=== PATIENT | male | born 1970 | race Caucasian/White ===

== ENCOUNTER 2021-01-13 10:35 | Outpatient (REF) | payer OTHER, SELFPAY ==
[2021-01-13 14:17] LABS: Hematocrit 41.9 % (42-52); Hemoglobin 13.5 g/dl (14.0-18.0); Mean Corpuscular HGB Conc 32.2 g/dl (31.0-36.0); Mean Corpuscular Hemoglobin 28.7 pg (27.0-33.0); Mean Platelet Volume 10.5 fL (9.4-12.4); Platelet Count 280 X10*3/uL (160-400); Red Blood Count 4.71 X10*6/uL (4.60-5.80); Red Cell Distribution Width 13.4 % (11.0-16.0); White Blood Count 8.2 X10*3/uL (4.8-10.8)
[2021-01-13 14:18] LABS: Glucose Urine UA NEG (NEG); Leukocyte Esterase Urine NEG (NEG); Nitrite Urine NEG (NEG); PH 7.5 (5.0-8.0); Urine Blood NEG (NEG); Urine Ketones 5 MG/DL (NEG); Urine Protein NEG (NEG-TRACE)
[2021-01-13 14:21] LABS: Appearance Urine CLEAR; Color Urine YELLOW
[2021-01-13 18:22] LABS: Alanine Aminotransferase 27 U/L (0-40); Albumin Level 4.5 g/dL (3.5-5.0); Alkaline Phosphatase 75 U/L (39-117); Aspartate Amino Transferase 26 U/L (5-37); Bilirubin Direct 0.2 mg/dL (0.0-0.5); Bilirubin Total 0.5 mg/dL (0.0-1.0); Cholesterol 202 mg/dL; HDL Cholesterol 53 mg/dL; LDL Cholesterol Calculated 103 mg/dl; Triglycerides 230 mg/dL
[2021-01-14 04:15] LABS: Folate 18.8 ng/mL (> or = 4.0); Vitamin B12 349 pg/mL (200-900)
[2021-01-18 12:51] LABS: Vitamin D 25-OH, D2 <4 ng/mL; Vitamin D 25-OH, D3 30 ng/mL; Vitamin D 25-OH, Total 30 ng/mL (30-100)
== END 2021-01-13 10:36 | disposition home or self-care (01) ==
LOC: HO.10HDL 10:35
PROVIDERS: Visit Provider Internal Medicine
DX: I10 Essential (primary) hypertension (principal)
CPT/HCPCS: 36415; 80061; 80076; 81003; 82306; 82607; 82746; 85027

== ENCOUNTER 2022-08-22 12:04 | Day surgery (SDC) | payer OTHER, SELFPAY ==
--- NOTE | 2022-08-19 08:06 | P.CONAN_ITS ---
Documented by User: Vera Hardy NP 08/19/22 08:06 HPI - Anesthesia Eval Consult details Narrative: 52yo M for Upper Endoscopy PMFSH Active Problems Active Problems: All Active Problems (Updated 08/18/22 @ 07:15 by Rita Maurer RN) Exposure to COVID-19 virus (Acute) HTN (hypertension) (Acute) Sciatic leg pain (Acute) Lumbar radiculopathy (Acute) Right hip pain (Acute) Pyuria (Acute) GERD with esophagitis (Acute) Adderall use disorder, mild (Acute) ANUJ (generalized anxiety disorder) (Acute) MDD (major depressive disorder), recurrent episode, moderate (Acute) Annual physical exam (Acute) Polyarthralgia (Acute) Past Medical History Medical History Anxiety Shin esophagus Depression GERD (gastroesophageal reflux disease) Hiatal hernia HTN (hypertension) Family History Family History Father Hypertension Substance use disorder Mother Hypertension Osteoarthritis Rheumatoid arthritis Surgical History Surgical History History of hernia repair History of shoulder surgery Hx of colonoscopy Hx of esophagogastroduodenoscopy Hx of rotator cuff surgery Status post excision of lipoma Social History Social History Housing: House Alcohol intake: current Alcohol intake frequency: a few times a week Alcohol type: beer Patient Tobacco Use Status: Former Tobacco user Tobacco use type: Cigarette e-Cigarette/Vaping Use: Never Used Second Hand Smoke Exposure: No Use of substances other than those prescribed or required for medical reasons: No Are you DNR?: No Advance Directives: No Advance Directives Information Provided: Yes service: No Current occupational status: employed 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 Cognitive needs: No Hearing needs: No Vision needs: Yes Meds Allergies Allergy/AdvReac Type Severity Reaction Status Date / Time No Known Allergies Allergy Verified 03/16/22 08:44 [No Known Allergies*] Home Medications Medication Instructions Recorded Confirmed Last Taken Type zolpidem 10 mg tablet 10 mg PO BEDTIME 01/13/21 03/16/22 Unknown History dextroamphetamine-amphetamine 10 1 tab PO TID 03/16/22 03/16/22 Unknown History mg tablet sildenafil 50 mg tablet mg PO 03/16/22 03/16/22 Unknown History Exam Exam Date and Time: August 19, 2022805 Assessment and Plan Assessment Anesthesia Assessment: Chart Reviewed Documented by User: Prudence Zabala MD 08/22/22 13:14 PENDING SALE TO [facility] Past Medical History Medical History Anxiety Shin esophagus Depression GERD (gastroesophageal reflux disease) Hiatal hernia HTN (hypertension) Family History Family History Father Hypertension Substance use disorder Mother Hypertension Osteoarthritis Rheumatoid arthritis Family history of problems with anesthesia: No Surgical History Surgical History History of hernia repair History of shoulder surgery Hx of colonoscopy Hx of esophagogastroduodenoscopy Hx of rotator cuff surgery Status post excision of lipoma History of Problems with Anesthesia: No Social History Social History Housing: House Alcohol intake: current Alcohol intake frequency: a few times a week Alcohol type: beer Patient Tobacco Use Status: Former Tobacco user Tobacco use type: Cigarette e-Cigarette/Vaping Use: Never Used Second Hand Smoke Exposure: No Use of substances other than those prescribed or required for medical reasons: No Are you DNR?: No Advance Directives: No Advance Directives Information Provided: Yes service: No Current occupational status: employed 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 Cognitive needs: No Hearing needs: No Vision needs: Yes Meds Allergies Allergy/AdvReac Type Severity Reaction Status Date / Time No Known Allergies Allergy Verified 03/16/22 08:44 [No Known Allergies*] Home Medications Medication Instructions Recorded Confirmed Last Taken Type zolpidem 10 mg tablet 10 mg PO BEDTIME 01/13/21 03/16/22 Unknown History dextroamphetamine-amphetamine 10 1 tab PO TID 03/16/22 03/16/22 Unknown History mg tablet sildenafil 50 mg tablet mg PO 03/16/22 03/16/22 Unknown History Exam Height,Weight and Vital Signs: Height 5 ft 10 in Weight 83.915 kg Vital Signs Temp Pulse Resp BP Pulse Ox O2 Del Method 08/22/22 12:33 97.4 F 70 16 132/86 99 Room Air Airway Mallampati Class: III TM Dist: >3cm Neck ROM: Full Loose/Missing/Broken Teeth: Yes (Missing molar) and No (Denies broken or loose teeth) Heart: RRR Lungs: CTAB Assessment and Plan Final Anesthetic Review Family History of Problems with Anesthesia: No History of Problems with Anesthesia: No NPO: Yes ASA Class: II Final Preanesthetic Review: No Changes in Pt Med Stat, Consent Obtained/Reviewed and Anes Risks/Benef Reviewed Patient Risk: Low Procedure Risk: Low Assessment/Block/Sedation in SS: Assess/Block/Sedation-SS Anesthetic Plan Anesthetic Plan: MAC: Disposition: Standard PACU
[2022-08-22 12:33] VITALS: BP 132/86; PULSE 70; RESP 16; TEMP 36.3; O2SAT 99; BMI 26.5
[2022-08-22] MEDS: Lactated Ringers 1,000 ML 100 ML IVCONT (12:45)
[2022-08-22 13:41] VITALS: BP 114/71; PULSE 64; RESP 16; TEMP 36.6; O2SAT 98
--- NOTE | 2022-08-22 13:45 | P.BOP_ITS ---
Brief Operative Note Date of Service: 08/22/22 Pre-op diagnosis: GERD, Shin's Post-op diagnosis: other (Same, Hiatal hernia) Procedure: EGD with biopsies Surgeon: Mauro Bhandari Anesthesia: MAC Was an Head Greenskeeper used for this Procedure?: No Estimated blood loss (mL): 2.0 Pathology: other (A. EG Junction at 38cm) Condition: stable Disposition: PACU
[2022-08-22 13:56] VITALS: BP 122/85; PULSE 67; RESP 18; TEMP 36.2; O2SAT 97
--- NOTE | 2022-08-23 00:29 | OP_ITS ---
SURGEON: Mauro Bhandari MD INDICATIONS: The patient presents for evaluation of gastroesophageal reflux and Shin esophagus. Full consent has been obtained from him for this, including risks of bleeding and perforation. PREOPERATIVE DIAGNOSIS: POSTOPERATIVE DIAGNOSIS: PROCEDURE PERFORMED: Esophagogastroduodenoscopy with biopsies. ESTIMATED BLOOD LOSS: COMPLICATIONS: ANESTHESIA: Monitored anesthesia care. ASSISTANTS: SPECIMENS: PREOPERATIVE DIAGNOSES: Gastroesophageal reflux and Shin esophagus. POSTOPERATIVE DIAGNOSES: Gastroesophageal reflux and Shin esophagus, hiatal hernia. DESCRIPTION OF PROCEDURE: The patient was placed in the left lateral decubitus position. The Olympus video gastroscope was passed in the posterior oropharynx and upper esophagus under direct vision. The scope was passed slowly into the distal esophagus. The gastroesophageal junction appeared at 38 cm. There was some slight irregularity but no evidence of any esophagitis. The scope entered the stomach. There was a small hiatal hernia. The scope was advanced to the pylorus and the duodenum was cannulated in the descending portion. The duodenum including the bulb appeared normal without mass or ulceration. The scope was withdrawn back in the stomach. The gastric antrum and body appeared normal with good peristalsis. The scope was retroflexed visualizing the proximal stomach carefully which appeared normal, without any sign of mass or ulceration. The scope was straightened and withdrawn back to the esophagus. Multiple biopsies were obtained at the EG junction at 38 cm. Proximal to this, the esophageal mucosa appeared normal. The scope was withdrawn from the patient. He tolerated the procedure well and was returned to recovery area in stable condition. IMPRESSION: 1. Hiatal hernia. 2. Gastroesophageal reflux. 3. History of Shin esophagus. PLAN: The results of biopsies will be checked. He was advised to continue his omeprazole. Assuming there is no dysplasia, I would recommend a repeat upper endoscopy in 3 years. He will be due for a followup colonoscopy in 2023 as well. MD ANNA Roa/HOMER / [id number]
== END 2022-08-22 14:03 | disposition home or self-care (01) ==
PROVIDERS: PCP Physician Assistant; Visit Provider Internal Medicine
PROC: 0DJ08ZZ Inspection of Upper Intestinal Tract, Via Natural or Artificial Opening Endoscopic (ICD-10-PCS; CPT 43235; principal; 2022-08-22 13:20)
DX: K21.9 Gastro-esophageal reflux disease without esophagitis (principal); K22.70 Barrett's esophagus without dysplasia; K44.9 Diaphragmatic hernia without obstruction or gangrene; I10 Essential (primary) hypertension; F41.8 Other specified anxiety disorders; Z79.899 Other long term (current) drug therapy
CPT/HCPCS: 43239; 88305

== ENCOUNTER 2023-09-28 08:32 | Outpatient (AMB) | payer OTHER, SELFPAY ==
[2023-09-28 08:43] VITALS: BP 120/78; PULSE 75; O2SAT 100; BMI 28.0
--- NOTE | 2023-09-28 08:43 | MHC.PC.OV ---
Vital Signs 09/28/23 08:43 Height 5 ft 10 in Weight 195 lb BMI 28.0 BP 120/78 Blood Pressure Location Lt brachial Position Sitting Pulse 75 Pulse Source Pulse Oximeter Pulse Oximetry (%) 100 Oxygen Delivery Method Room Air Intake Visit Reasons: f/u HTN / HLD/ IGM Feather Stitcher Required: No Merchandise Executive: Not Required per policy Accompanied by: Self / Same As Patient Allergies No Known Allergies [No Known Allergies*] Allergy (Verified 09/28/23 08:51) Medication List - Last Reconciled 09/28/23 by Jerry Ramirez PA-C amlodipine 10 mg PO DAILY 90 days metoprolol tartrate 25 mg PO BID omeprazole 20 mg PO BID sildenafil 100 mg PO DAILY PRN 7 days simvastatin 20 mg PO BEDTIME zolpidem 10 mg PO BEDTIME 28 days Tobacco use date assessed: 02/07/23 Dental Screening Dental Screen Date: 09/28/23 Did you have a dental visit in the last 12 months?: Yes Did you have a dental problem in the last 6 months where you did not have access to dental care?: No Was dental information given to patient?: Patient has dentist HPI f/u HTN / HLD/ IGM HPI Details Patient is a 53 year-old male here today for a follow-up visit..? Patient has a past medical history significant hypertension, insomnia, MDD, ADD,, GERD (Barretts esophagus),? hyperlipidemia, RA Has not gotten fasting labs done Osteoarthritis:? Recently underwent shoulder arthroscopic surgery , he use to have arthritic pain he does over the counter NSAIDs on a daily basis.? Does understand that this could be making his esophagitis gets worse.? He will try to implement more Tylenol Hypertension:? Reports blood pressures at home have been stable.? Blood pressure today in office acceptable.? Continues on metoprolol and amlodipine without any side effect.? .. Hyperlipidemia:? Patient's most recent lipid panel borderline high.? Continues on simvastatin without any side effect. .. GERD/ Shin's esophagus:? Is followed by gastroenterology and had EGD in 2021 showing esophagitis/Shin's esophagus.? Needed repeat it upper endoscopy in 5 years.? Unfortunately continues to take very fair amount of NSAIDs and does understand he needs to cut down . .. Depression/ ADHD: He does report he is off of all antidepressant medication. Was followed by psychiatrist whom was managing his mental health medication. He now for someone parent reason needs PCP to manage his ADHD medication. Has been taking Adderall 20 mg on a p.r.n. basis which has drastically improved his attention and focus. [facility] Medical History Erectile dysfunction Low libido HTN (hypertension) Anxiety Depression Hiatal hernia Shin esophagus GERD (gastroesophageal reflux disease) Pyuria Lumbar radiculopathy Surgical History History of surgery Hx of rotator cuff surgery Hx of colonoscopy Hx of esophagogastroduodenoscopy History of hernia repair Status post excision of lipoma History of shoulder surgery Family History Father Hypertension Substance use disorder Mother Hypertension Osteoarthritis Rheumatoid arthritis Social History Housing: House Alcohol intake: current Alcohol intake frequency: a few times a week Alcohol type: beer Patient Tobacco Use Status: Never used Tobacco e-Cigarette/Vaping Use: Never Used Second Hand Smoke Exposure: No service: No Current occupational status: employed 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 Mauro Gray, Judy Martinez, Elgin Mckenzie and colleagues, with an educational sid from [employer]. Review of Systems Const Denies headache(s) Eyes Denies loss of vision ENT Denies vertigo, Denies dizziness, Denies headache(s) and Denies sore throat Card Denies chest pain, Denies leg edema and Denies lightheadedness Resp Denies cough, Denies hemoptysis and Denies wheezing GI Denies abdominal pain, Denies melena, Denies constipation, Denies diarrhea and Denies vomiting Denies dysuria, Denies urinary frequency and Denies urinary urgency Musc Denies arthralgias, Denies joint swelling, Denies numbness and Denies tingling Neuro Denies Abnormal speech present, Denies behavioral changes, Denies vertigo, Denies dizziness, Denies headache(s), Denies loss of vision, Denies memory loss, Denies numbness and Denies tingling Psych Denies anxiety, Denies behavioral changes, Denies depression, Denies memory loss and Denies panic attacks Ian/Lymph Denies easy bleeding and Denies easy bruising Aller/Immun Denies wheezing Physical exam (Primary Care) Vital Signs: Last Vital Signs Pulse 75 09/28/23 08:43 BP 120/78 09/28/23 08:43 Pulse Ox 100 09/28/23 08:43 Oxygen Delivery Method Room Air 09/28/23 08:43 BMI result Body Mass Index 28.0 Tobacco/Smoking Status: Tobacco use Status Tobacco use date assessed 02/07/23 09/28/23 08:49 Patient Tobacco Use Status Never used Tobacco 09/28/23 08:49 Tobacco use type 03/29/23 09:12 e-Cigarette/Vaping Use Never Used 09/28/23 08:49 Thrive Assessment: Date of Thrive Assessment Date Thrive assessed 02/07/23 09/28/23 08:49 Const General: healthy appearing, no acute distress, alert and awake Nutritional Appearance: well nourished Orientation/consciousness: oriented to person, oriented to place and oriented to time HENMT Ears: TM's normal bilaterally General nose exam: Normal nasal mucous membranes and turbinates present Eyes Conjunctivae: conjunctivae normal Sclerae: sclerae normal Pupils: Equal, round and reactive pupils present Neck Neck: Yes no lymphadenopathy and Yes no JVD Thyroid: Thyroid normal Carotids: no bruits Resp Effort & Inspection: normal respiratory effort and not tachypneic Auscultation: no crackles, no rales, no rhonchi and no wheezes Cardio Rate: regular rate Rhythm: regular rhythm Heart sounds: no murmurs and normal S1 and S2 GI Palpation (GI): Soft to palpation, nontender, no hepatomegaly and no splenomegaly Auscultation: normal bowel sounds Skin General skin exam: no rashes or lesions noted and dry skin Neuro General: oriented to person, oriented to place and oriented to time Cranial nerves: Yes Equal, round and reactive pupils present Speech: No Abnormal speech present Gait exam (Neuro): Normal gait present Motor exam (neuro): no tremor noted Extrem Right upper extremity: full ROM Left upper extremity: full ROM Right lower extremity: full ROM; no edema Left lower extremity: full ROM; no edema Psych Mental Status: mental status grossly normal Speech and movement: Normal speech and movement present Affect: normal affect Attitude: cooperative Thought process: Normal thought process present Assessment and Plan Assessment & Plan (1) HTN (hypertension): Code(s): I10 - Essential (primary) hypertension Qualifiers: Hypertension type: primary hypertension Qualified Code(s): I10 - Essential (primary) hypertension Plan: Placement blood pressure acceptable today in office. Will continue his current dose of amlodipine and metoprolol with goal blood pressure be below 140/90 (2) HLD (hyperlipidemia): Code(s): E78.5 - Hyperlipidemia, unspecified Qualifiers: Hyperlipidemia type: mixed hyperlipidemia Qualified Code(s): E78.2 - Mixed hyperlipidemia Plan: Most recent labs showing appropriate total cholesterol and LDL. Will continue his current dose of simvastatin 20 mg with goal LDL to remain below 130 (3) Elevated fasting blood sugar: Code(s): R73.01 - Impaired fasting glucose Plan: Most recent fasting blood sugar at 110, will check an A1c at next office visit. He will work on lifestyle modifications on reducing his weight and carbohydrates in his diet. (4) ANUJ (generalized anxiety disorder): Code(s): F41.1 - Generalized anxiety disorder Plan: Patient's anxiety has been fairly well controlled without medication at this time. 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 He does use open him at night for sleep with good effect. (5) Polyarthralgia: Code(s): M25.50 - Pain in unspecified joint Plan: Continues to follow fish cutter for his polyarthralgia. Continues to manage his arthritic pains without NSAIDs at this time due to His chronic GERD and Shin's esophagus. (6) MDD (major depressive disorder), recurrent episode, moderate: Code(s): F33.1 - Major depressive disorder, recurrent, moderate Plan: Patient's patient is been fairly well maintained without medication. Using nonpharmacological techniques to control his mood. (7) GERD with esophagitis: Code(s): K21.00 - Gastro-esophageal reflux disease with esophagitis, without bleeding Qualifiers: Esophagitis bleeding: without hemorrhage Qualified Code(s): K21.00 - Gastro-esophageal reflux disease with esophagitis, without bleeding Plan: Patient's GERD symptoms will maintain with omeprazole b.i.d. dosing. Most recent endoscopy showing hiatal hernia and esophagitis. Continues to follow gastroenterology. Advised to avoid NSAIDs and GI irritant medications. Of note does drink alcohol several times a week. (8) ADHD (attention deficit hyperactivity disorder): Code(s): F90.9 - Attention-deficit hyperactivity disorder, unspecified type Qualifiers: Attention deficit-hyperactivity disorder type: predominantly inattentive Qualified Code(s): F90.0 - Attention-deficit hyperactivity disorder, predominantly inattentive type Plan: Has follow-up with Psychiatry. He has been asked to follow-up with his PCP on prescribing him Adderall for his ADHD. Has been stable on 20 mg p.r.n. for attention and focus. He will try to get a letter from his psychiatrist just to find the need for the medication. Medications: New dextroamphetamine-amphetamine 10 mg (Adderall) Partial Fill upon patient request. 20 mg (2 x 10 mg) PO DAILY 28 days 56 tabs 0RF F90.0 - Attention-deficit hyperactivity disorder, predominantly inattentive type Coding Level of Care Code Est Pt Level 4 (18690) Diagnoses Primary hypertension I10 Hypertension type: primary hypertension Mixed hyperlipidemia E78.2 Hyperlipidemia type: mixed hyperlipidemia Elevated fasting blood sugar R73.01 ANUJ (generalized anxiety disorder) F41.1 Polyarthralgia M25.50 MDD (major depressive disorder), recurrent episode, moderate F33.1 Gastroesophageal reflux disease with esophagitis without hemorrhage K21.00 Esophagitis bleeding: without hemorrhage Attention deficit hyperactivity disorder (ADHD), predominantly inattentive type F90.0 Attention deficit-hyperactivity disorder type: predominantly inattentive
== END 2023-09-28 09:14 | disposition home or self-care (01) ==
PROVIDERS: PCP Physician Assistant; Visit Provider Physician Assistant
DX: I10 Essential (primary) hypertension (principal); F33.1 Major depressive disorder, recurrent, moderate; E78.2 Mixed hyperlipidemia; R73.01 Impaired fasting glucose; F41.1 Generalized anxiety disorder; M25.50 Pain in unspecified joint; K21.00 Gastro-esophageal reflux disease with esophagitis, without bleeding; F90.0 Attention-deficit hyperactivity disorder, predominantly inattentive type
CPT/HCPCS: 99214

== ENCOUNTER 2024-04-01 07:37 | Outpatient (AMB) | payer OTHER, SELFPAY ==
[2024-04-01 07:47] VITALS: BP 114/76; BMI 27.3
--- NOTE | 2024-04-01 07:47 | MHC.PC.OV ---
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 Required: No Accompanied by: Self / Same As Patient Allergies No Known Allergies [No Known Allergies*] Allergy (Verified 04/01/24 07:59) Medication List - Last Reconciled 04/01/24 by Jerry Ramirez PA-C amlodipine 10 mg PO DAILY 90 days dextroamphetamine-amphetamine 10 mg (Adderall) 20 mg (2 x 10 mg) PO DAILY 28 days metoprolol tartrate 25 mg PO BID omeprazole 20 mg PO BID sildenafil 100 mg PO DAILY PRN 7 days simvastatin 20 mg PO BEDTIME zolpidem 10 mg PO BEDTIME 28 days Tobacco use date assessed: 04/01/24 Dental Screening Dental Screen Date: 04/01/24 Did you have a dental visit in the last 12 months?: Yes Did you have a dental problem in the last 6 months where you did not have access to dental care?: No Was dental information given to patient?: Patient has dentist HPI Annual Exam HPI Details Patient is a 54 year-old male here today for a routine annual physical.? Patient has a past medical history significant hypertension, insomnia, MDD, ADD,, GERD (Barretts esophagus),? hyperlipidemia, Osteoarthritis:? Continues to suffer with polyarthralgia complaints. Followed by the arthritic treatment center. He uses NSAIDs on a daily basis.? Does understand that this could be making his esophagitis gets worse.? He will try to implement more Tylenol/. He has not been formally diagnosed with autoimmune arthritis. Hypertension:? Reports blood pressures at home have been stable.? Blood pressure today in office acceptable.? Continues on metoprolol and amlodipine without any side effect.? .. Hyperlipidemia:? Patient's most recent lipid panel borderline high.? Continues on simvastatin without any side effect. .. GERD/ Shin's esophagus:? Is followed by gastroenterology and had EGD in 2021 showing esophagitis/Shin's esophagus.? Needed repeat it upper endoscopy in 5 years.? Unfortunately continues to take very fair amount of NSAIDs and does understand he needs to cut down . .. Depression/ ADHD: He does report he is off of all antidepressant medication. Was followed by psychiatrist whom was managing his mental health medication. . Has been taking Adderall 20 mg on a p.r.n. basis which has drastically improved his attention and focus. Colon cancer screening- needs repeat colonoscopy in 2023- Dr. Bhandari?? Vaccines: Up-to-date with COVID vaccine and needs tetanus vaccine, considering shingrex vaccine. [facility] Medical History Erectile dysfunction Low libido HTN (hypertension) Anxiety Depression Hiatal hernia Shin esophagus GERD (gastroesophageal reflux disease) Pyuria Lumbar radiculopathy Surgical History History of surgery Hx of rotator cuff surgery Hx of colonoscopy Hx of esophagogastroduodenoscopy History of hernia repair Status post excision of lipoma History of shoulder surgery Family History Father Hypertension Substance use disorder Mother Hypertension Osteoarthritis Rheumatoid arthritis Social History Housing: House Alcohol intake: current Alcohol intake frequency: a few times a week Alcohol type: beer Patient Tobacco Use Status: Never used Tobacco e-Cigarette/Vaping Use: Never Used Second Hand Smoke Exposure: No service: No Current occupational status: employed 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 1. Little interest or pleasure in doing things: not at all 2. Feeling down, depressed, or hopeless: not at all 3. Trouble falling or staying asleep, or sleeping too much: not at all 4. Feeling tired or having little energy: not at all 5. Poor appetite or overeating: not at all 6. Feeling bad about yourself - or that you are a failure or have let yourself or your family down: not at all 7. Trouble concentrating on things, such as reading the newspaper or watching television: not at all 8. Moving or speaking so slowly that other people could have noticed. Or the opposite - being so fidgety or restless that you have been moving around a lot more than usual: not at all 9. Thoughts that you would be better off or of hurting yourself in some way: not at all Total score: 0 Depression Screening Interpretation: Negative Depression Screening Done: Yes 36517 - PHQ-9 Billing: Yes Source: Developed by Drs. Mauro Gray, Judy Martinez, Elgin Mkcenzie and colleagues, with an educational sid from [employer]. Thrive Questionnaire Date Thrive assessed: 02/07/23 AUDIT C Alcohol Use Questionnaire (AUDIT-C) 1. How often do you have a drink containing alcohol?: 2-3 times a week 2. How many drinks containing alcohol do you have on a typical day when you are drinking?: 1 or 2 3. How often do you have six or more drinks on one occasion?: Never Total Score: 3 ANUJ-7 AMB Questionnaire ANUJ-7 Date ANUJ - 7 assessed: 04/01/24 Feeling nervous, anxious, or on edge: 1 = Several days Not being able to stop or control worryin = Not at all Worrying too much about different things: 1 = Several days Trouble relaxin = Several days Being so restless that it is hard to sit still: 0 = Not at all Becoming easily annoyed or irritable: 1 = Several days Feeling afraid as if something awful might happen: 0 = Not at all Total ANUJ-7 score (0-4 normal; 5-9 mild; 10-14 moderate; 15-21 severe): 4 Source: Developed by Drs. Mauro Gray, Judy Martinez, Elgin Mckenzie and colleagues, with an educational sid from [employer]. ANUJ-7 Assessment Billing ANUJ-7 Assessment Tool: ANUJ-7 Assessment 73702 Review of Systems Const Reports body aches, Denies chills, Denies excessive sweating, Denies fatigue, Denies fever(s) and Denies headache(s) Eyes Denies blurry vision ENT Denies dysphagia, Denies vertigo, Denies dizziness, Denies headache(s), Denies hearing loss and Denies tinnitus Card Denies chest pain, Denies chest pain with activity, Denies syncope, Denies irregular heart rhythm and Denies dyspnea Resp Denies chest congestion, Denies cough, Denies hemoptysis, Denies dyspnea and Denies wheezing GI Denies abdominal pain, Denies melena, Denies hematochezia, Denies coffee ground emesis, Denies dysphagia, Denies diarrhea, Denies nausea and Denies vomiting Denies difficulty urinating, Denies dysuria, Denies urinary frequency, Denies urinary hesitancy and Denies urinary urgency Musc Reports arthralgias, Denies limited range of motion, Denies muscle cramps and Denies muscle weakness Skin/Breast Denies rash and Denies skin ulcer Neuro Denies Abnormal speech present, Denies confusion, Denies vertigo, Denies dizziness, Denies syncope, Denies headache(s), Denies memory loss and Denies seizure-like activity Psych Denies anxiety, Denies confusion, Denies depression, Denies memory loss, Denies panic attacks and Denies paranoia Endo Denies excessive sweating, Denies fatigue, Denies flushing, Denies polydipsia and Denies polyuria Aller/Immun Denies wheezing Physical exam (Primary Care) Vital Signs: Last Vital Signs BP 114/76 04/01/24 07:47 BMI result Body Mass Index 27.3 Tobacco/Smoking Status: Tobacco use Status Tobacco use date assessed 04/01/24 04/01/24 07:53 Patient Tobacco Use Status Never used Tobacco 04/01/24 07:53 Tobacco use type 03/29/23 09:12 e-Cigarette/Vaping Use Never Used 04/01/24 07:53 PHQ-9: PHQ-9 Score PHQ-9: Total score 0 04/01/24 08:31 Depression Screening Interpretation: Negative Thrive Assessment: Date of Thrive Assessment Date Thrive assessed 02/07/23 04/01/24 07:53 Const General: cooperative, comfortable, no acute distress, alert and awake; No confusion Orientation/consciousness: oriented to person, oriented to place, patient oriented x3 and No confusion HENMT Head: Yes normocephalic Ears: external ears normal and TM's normal bilaterally Face and sinus: No sinus tenderness Mouth: Normal oral and palatal mucosa present and tongue normal Teeth and gingiva: dentition normal and gingiva normal Throat: Yes posterior oropharynx normal, Yes tonsils normal and Yes uvula midline Eyes Conjunctivae: conjunctivae normal Sclerae: sclerae normal Pupils: Equal, round and reactive pupils present EOM: EOMs intact bilaterally Direct Ophthalmoscopy: No no photophobia Neck Neck: Yes no lymphadenopathy, No tender and Yes no JVD Thyroid: Thyroid normal Carotids: no bruits Chest Chest palpation & inspection: no tenderness Resp Effort & Inspection: normal respiratory effort, no audible wheezes, not labored and no stridor Auscultation: no crackles, no rales, no rhonchi and no wheezes Cardio Jugular venous distension: no JVD Rate: regular rate, not bradycardic and not tachycardic Rhythm: regular rhythm Bruits: no carotid bruits Peripheral pulses: Peripheral pulses 2+ throughout GI Inspection: Yes normal to inspection, No abdominal wall ecchymosis and No visible herniation Palpation (GI): Soft to palpation, nontender, no guarding, not rigid and No hepatosplenomegaly present Auscultation: normoactive bowel sounds General: Yes no CVA tenderness Back/Spine/Pelvis Back: no CVA tenderness and No back tenderness Cervical Spine: cervical ROM normal Thoracic/Lumbar Spine: thoracic and lumbar spine normal to inspection, straight leg raise negative bilaterally, No thoraco-lumbar ROM limited and No lumbar spinal tenderness Skin Lesions: no lesions Rashes: no rashes Wounds: no wounds Neuro General: oriented to person, oriented to place, patient oriented x3, CN's II-XI intact bilaterally and No confusion Cranial nerves: Yes Equal, round and reactive pupils present and Yes Normal accommodation reflex present Cognition (Neuro): normal cognition Speech: No Abnormal speech present Gait exam (Neuro): Normal gait present Motor exam (neuro): 5/5 motor strength present throughout Extrem Right upper extremity: full ROM; no cyanosis Left upper extremity: full ROM; no cyanosis Right lower extremity: no edema Left lower extremity: no edema Psych Appearance: grossly normal Mental Status: mental status grossly normal Affect: normal affect Attitude: cooperative Thought process: Normal thought process present Immunizations Boostrix Tdap 2.5 Lf unit-8 mcg-5 Lf/0.5 mL intramuscular syringe Performing Provider: Jerry Ramierz PA-C [facility] Administered by: ROSA Canseco on 04/01/24 08:31 Dose Route Admin Location Dispensed Lot Number Expiration Date NDC Jig Bore Operator 0.5 mL IM Left Deltoid 0.5 mL [id number] 05/17/26 [id number] Predikt VIS Given Date VIS Provided VIS Publication Date 04/01/24 Single Vaccine 21 Eligibility Eligibility Date Funding Source Not [facility] Eligible 04/01/24 Private Assessment and Plan Assessment & Plan (1) Annual physical exam: Code(s): Z00.00 - Encounter for general adult medical examination without abnormal findings (2) HTN (hypertension): Code(s): I10 - Essential (primary) hypertension Qualifiers: Hypertension type: primary hypertension Qualified Code(s): I10 - Essential (primary) hypertension Plan: Placement blood pressure acceptable today in office. Will continue his current dose of amlodipine and metoprolol with goal blood pressure be below 140/90 (3) HLD (hyperlipidemia): Code(s): E78.5 - Hyperlipidemia, unspecified Qualifiers: Hyperlipidemia type: mixed hyperlipidemia Qualified Code(s): E78.2 - Mixed hyperlipidemia Plan: Most recent labs showing appropriate total cholesterol and LDL. Will continue his current dose of simvastatin 20 mg with goal LDL to remain below 130 (4) Elevated fasting blood sugar: Code(s): R73.01 - Impaired fasting glucose Plan: Most recent fasting blood sugar at 110, will check an A1c at next office visit. He will work on lifestyle modifications on reducing his weight and carbohydrates in his diet. (5) ANUJ (generalized anxiety disorder): Code(s): F41.1 - Generalized anxiety disorder Plan: Patient's ANUJ-7 score positive for mild anxiety which has been existing condition for him.. Patient's anxiety has been fairly well controlled without medication at this time. 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 He does use open him at night for sleep with good effect. (6) Polyarthralgia: Code(s): M25.50 - Pain in unspecified joint Plan: Continues to follow stone product fabricator for his polyarthralgia. Continues to manage his arthritic pains without NSAIDs at this time due to His chronic GERD and Shin's esophagus. We did discuss possibly implementing fasting diet to help his arthritis. (7) MDD (major depressive disorder), recurrent episode, moderate: Code(s): F33.1 - Major depressive disorder, recurrent, moderate Plan: Patient's patient is been fairly well maintained without medication. Using nonpharmacological techniques to control his mood. (8) GERD with esophagitis: Code(s): K21.00 - Gastro-esophageal reflux disease with esophagitis, without bleeding Qualifiers: Esophagitis bleeding: without hemorrhage Qualified Code(s): K21.00 - Gastro-esophageal reflux disease with esophagitis, without bleeding Plan: Patient's GERD symptoms will maintain with omeprazole b.i.d. dosing. Most recent endoscopy showing hiatal hernia and esophagitis. Continues to follow gastroenterology. Advised to avoid NSAIDs and GI irritant medications. Of note does drink alcohol several times a week. (9) ADHD (attention deficit hyperactivity disorder): Code(s): F90.9 - Attention-deficit hyperactivity disorder, unspecified type Qualifiers: Attention deficit-hyperactivity disorder type: predominantly inattentive Qualified Code(s): F90.0 - Attention-deficit hyperactivity disorder, predominantly inattentive type Plan: Has follow-up with Psychiatry. He is reestablish care with a mental health med provider and continues on Adderall. Has been stable on 20 mg p.r.n. for attention and focus. Orders: Orders Hemoglobin A1c 04/01/24 R73.01 - Impaired fasting glucose TDaP Immunization 04/01/24 R73.01 - Impaired fasting glucose, Z23 - Encounter for immunization Lipid Panel 04/01/24 E78.2 - Mixed hyperlipidemia Comprehensive [place]. Panel Fast 04/01/24 I10 - Essential (primary) hypertension Complete Blood Count no Diff 04/01/24 I10 - Essential (primary) hypertension Patient Instructions: Goal: Blood pressure to remain below 140/90 Barriers: Adherence to physical activity and healthy eating habits Coding Level of Care Code Est Pt Prev Care 40-64y(19322) Diagnoses Annual physical exam Z00.00 Primary hypertension I10 Hypertension type: primary hypertension Mixed hyperlipidemia E78.2 Hyperlipidemia type: mixed hyperlipidemia Elevated fasting blood sugar R73.01 ANUJ (generalized anxiety disorder) F41.1 Polyarthralgia M25.50 MDD (major depressive disorder), recurrent episode, moderate F33.1 Gastroesophageal reflux disease with esophagitis without hemorrhage K21.00 Esophagitis bleeding: without hemorrhage Attention deficit hyperactivity disorder (ADHD), predominantly inattentive type F90.0 Attention deficit-hyperactivity disorder type: predominantly inattentive Additional Codes ANUJ-7 Assessment Billing - ANUJ-7 Assessment Tool: ANUJ-7 Assessment 27887 ([id number])
== END 2024-04-01 08:32 | disposition home or self-care (01) ==
PROVIDERS: PCP Physician Assistant; Visit Provider Physician Assistant
DX: Z23 Encounter for immunization (principal); R73.01 Impaired fasting glucose
CPT/HCPCS: 90471; 90715; 99396

== ENCOUNTER 2024-06-26 11:09 | Outpatient (AMB) | payer OTHER, SELFPAY ==
--- NOTE | 2024-06-26 11:23 | A.OFFVIS_ITS ---
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 Ramirez. He has a past medical history of ED, low libido, hypertension, anxiety, depression, hiatal hernia, Shin's esophagus, GERD, and lumbar radiculopathy. He presents to the office today as a new patient for right-sided scrotal, testicular and groin discomfort he has been experiencing. He reports initially symptoms presented 15 years ago and he underwent a scrotal ultrasound that noted epidid ymal head cysts and recommendations were made for surveillance monitoring. He reports he continues with intermittent episodes of pain and feels cysts have gotten bigger. He discusses with his PCP at which time urology referral was made for further assessment evaluation. In assessment of the patient today the penis is circumcised bilateral epididymal head cysts palpated without pain however during exam during palpation of groin area patient does report pain. Otherwise no open areas, lesions, and or drainage noted. Discussed obtaining scrotal ultrasound for further assessment evaluation. We discussed further intervention to include surgical versus surveillance monitoring. Risks and benefits of these interventions were discussed. Otherwise denies any bothersome urinary issues. He denies urinary urgency, urinary frequency, incontinence, nocturia, hematuria, dysuria, foul smelling urine, changes to urinary stream, flank pain, fever, and or chills. He is happy with his current voiding parameters. He does report a history of erectile dysfunction however feels Viagra is helpful. He otherwise offers no other issues or concerns at this time. [facility]LY [facility], [facility] Medical History Erectile dysfunction Low libido HTN (hypertension) Anxiety Depression Hiatal hernia Shin esophagus GERD (gastroesophageal reflux disease) Pyuria Lumbar radiculopathy Surgical History History of surgery Hx of rotator cuff surgery Hx of colonoscopy Hx of esophagogastroduodenoscopy History of hernia repair Status post excision of lipoma History of shoulder surgery Family History Father Hypertension Substance use disorder Mother Hypertension Osteoarthritis Rheumatoid arthritis Social History Housing: House Alcohol intake: current Alcohol intake frequency: a few times a week Alcohol type: beer Patient Tobacco Use Status: Never used Tobacco e-Cigarette/Vaping Use: Never Used Second Hand Smoke Exposure: No service: No Current occupational status: employed 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 occupational exposures/hazards: No Cognitive needs: No Hearing needs: No Vision needs: Yes Review of Systems Const All systems reviewed & are unremarkable except as noted in HPI and below Physical Exam Const General: cooperative, comfortable, no acute distress, well developed, alert and awake Orientation/consciousness: patient oriented x3 HEENT Head: Yes normal to inspection, Yes normocephalic and Yes atraumatic Ears: hearing grossly normal bilaterally Eyes General: appearance normal, both eyes and all related structures Neck Neck: Yes normal visual inspection and Yes trachea midline Chest Chest palpation & inspection: normal inspection of the chest Resp Effort & Inspection: normal respiratory effort and able to speak in complete sentences Cardio Rate: regular rate GI Inspection: Yes normal to inspection General: Yes no CVA tenderness Back/Spine/Pelvis Back: no CVA tenderness Skin General skin exam: no rashes or lesions noted Neuro General: patient oriented x3 Extrem General: Yes normal to inspection Psych Appearance: grossly normal and well kempt Mental Status: mental status grossly normal Speech and movement: Normal speech and movement present and Clear speech present Affect: normal affect Attitude: cooperative Thought process: Normal thought process present Thought content: Normal thought content present Insight: Fair insight present (Psych) Judgement: Fair judgement present (Psych) Results AMB Urinalysis, Automated UA Leukoctes 0 Olvin/uL Last Edit by Ting Lane on 06/26/24 11:34 UA Nitrite Last Edit by Ting Lane on 06/26/24 11:34 UA Urobilinogen 0.2 mg/dL Last Edit by Ting Lane on 06/26/24 11:34 UA Protein 0 mg/dL Last Edit by Ting Lane on 06/26/24 11:34 UA pH 7.0 Last Edit by Ting Lane on 06/26/24 11:34 UA Blood 0 Roderick/uL Last Edit by Ting Lane on 06/26/24 11:34 UA Specific [place] 1.015 Last Edit by Ting Lane on 06/26/24 11:34 UA Ketone Negative Last Edit by Ting Lane on 06/26/24 11:34 UA Bilirubin 0 mg/dL Last Edit by Ting Lane on 06/26/24 11:34 UA Glucose 0 mg/dL Last Edit by Turbulenzvalarie Lane on 06/26/24 11:34 Results Reviewed Results Reviewed: Laboratory Last Values Urine pH (Auto) 7.0 06/26/24 11:32 Specific [place] (Auto) 1.015 06/26/24 11:32 Urine Protein (Auto) 0 mg/dL 06/26/24 11:32 Glucose (UA)(Auto) 0 mg/dL 06/26/24 11:32 Urine Ketones (Auto) Negative 06/26/24 11:32 Urine Blood (Auto) 0 Roderick/uL 06/26/24 11:32 Urine Bilirubin (Auto) 0 mg/dL 06/26/24 11:32 Urine Urobilinogen (Auto) 0.2 mg/dL 06/26/24 11:32 Leukocyte Esterase (Auto) 0 Olvin/uL 06/26/24 11:32 Assessment & Plan Assessment & Plan (1) Testicular pain: Code(s): N50.819 - Testicular pain, unspecified Category: Medical (2) Testicular cyst: Code(s): N44.2 - Benign cyst of testis Category: Medical Plan In office urinalysis results reviewed with the patient today; as noted above. Will obtain scrotal ultrasound for further assessment evaluation. Discussed potential causes as well as further treatment options for epididymal head cysts. He currently denies any bothersome urinary issues or concerns. He reports be happy with current voiding parameters. Reassurance provided Follow-up in 1-3 months with imaging to be completed prior; or sooner with any issues, concerns, and or questions. Orders: Orders AMB Urinalysis Automated Today Z13.9 - Encounter for screening, unspecified US scrotum Today N43.3 - Hydrocele, unspecified Patient Instructions: The patient had an opportunity to ask questions regarding the treatment plan. All questions were answered. Physical exam, labs, and imaging were discussed and reviewed in detail. As well as risks, benefits, and discussion of treatment choices. No major barriers to understanding were identified. The patient expressed understanding and agreement with the above treatment plan. The patient was made aware they should contact our office by phone for worsening of their current condition, the appearance of new symptoms, or with any questions or concerns. Compliance is encouraged with any medications and follow up testing that is ordered. It is a privilege to be allowed the opportunity to participate in? your urological care.? Again, if you have any questions or concerns If you have any questions or concerns please do not hesitate to contact me. The office is [phone]. This note is constructed using voice recognition software. While every effort has been made to ensure accuracy peanut shaker errors may have been included. Yours sincerely, JUANIS Lloyd Coding Level of Care Code New Pt Level 3 (96994) Diagnoses Testicular pain N50.819 Testicular cyst N44.2
== END 2024-06-26 11:50 | disposition home or self-care (01) ==
PROVIDERS: PCP Physician Assistant; Visit Provider Nurse Practitioner Family
DX: N50.819 Testicular pain, unspecified (principal); N44.2 Benign cyst of testis; Z13.9 Encounter for screening, unspecified
CPT/HCPCS: 99203

== ENCOUNTER → 2024-06-26 11:09 | Outpatient (BNVA) | payer OTHER, SELFPAY | PROVIDERS: PCP Physician Assistant; Visit Provider Nurse Practitioner Family | DX: N50.811 Right testicular pain (principal); N44.2 Benign cyst of testis | CPT/HCPCS: 81003 ==

== ENCOUNTER 2024-07-30 12:58 | Outpatient (REF) | payer OTHER, SELFPAY ==
--- NOTE | ~2024-07-30 | US_ITS ---
EXAMINATION: US SCROTUM CLINICAL INFORMATION: Hydrocele, unspecified. COMPARISON: None available. TECHNIQUE: A sonogram of the scrotum was performed assessing juan-scale appearance and color Doppler flow. Spectral Doppler analysis of the arterial and venous flow were performed in the testes bilaterally. FINDINGS: RIGHT: Right testicle measures 5.6 x 2.6 x 3.5 cm, volume 26.2 mL. Parenchymal echotexture is homogeneous. There is tubular ectasia of the rete testes. 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 Spectral Doppler analysis of the arterial and venous flow is normal in the right testis. Right epididymal head is normal in size. Multiple epididymal cysts are present, the largest measures 1.9 x 1.5 x 1.8 cm. No right hydrocele or varicocele is seen. LEFT: Left testicle measures 5.8 x 2.5 x 4.1 cm, volume 30.6 mL. Parenchymal echotexture is homogeneous. 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 Spectral Doppler analysis of the arterial and venous flow is normal in the left testis. Left epididymal head is normal in size. Multiple epididymal cysts are present, the largest measures 1.0 x 0.9 x 1.0 cm. No left hydrocele or varicocele is seen. US/US scrotum IMPRESSION: 1. Bilateral epididymal cysts.. 2. Tubular ectasia of the rete testes on the right. 3. Testicular microlithiasis is present without intratesticular mass or other worrisome findings. In the absence of any other risk factors for testicular cancer (e.g., personal history of testicular cancer, a father or brother with testicular cancer, history of cryptorchidism or maldescent, testicular atrophy, or other risk factors), no further imaging or biochemical follow-up is necessary; all that is recommended is routine monthly testicular self-examination. However, if the patient has risk factors for testicular cancer, referral to a urologist for evaluation and determination of an optimal follow-up strategy is recommended. Electronically signed by: Bart Daugherty MD 08/27/2024 07:13 PM [facility]
== END 2024-07-30 12:59 | disposition home or self-care (01) ==
LOC: HO.US 12:58
PROVIDERS: PCP Physician Assistant; Visit Provider Nurse Practitioner Family
DX: N43.3 Hydrocele, unspecified (principal)
CPT/HCPCS: 76870

== ENCOUNTER 2024-08-15 08:27 | Outpatient (AMB) | payer OTHER, SELFPAY ==
--- NOTE | 2024-08-15 08:30 | A.OFFVIS_ITS ---
Intake Visit Reasons: 2m/US(set) Intake Note: Patient presents today for follow up on: testicular pain and ultrasound results Imaging completed: 07/30/24 Urology Medications: sildenafil Blood Thinner: none Cdl Bulk Driver Required: No Accompanied by: Self / Same As Patient Allergies No Known Allergies [No Known Allergies*] Allergy (Verified 08/15/24 08:31) HPI Comments Details: Joseph is a very pleasant 54-year-old male patient of Dr. Ramirez. He has a past medical history of ED, low libido, hypertension, anxiety, depression, hiatal hernia, Shin's esophagus, GERD, and lumbar radiculopathy. He presents to the office today for follow-up. Of note, patient was seen approximately 2 months ago as a new patient for right-sided scrotal, testicular and groin discomfort he has been experiencing at which time on exam patient was noted to have bilateral epididymal head cysts a scrotal ultrasound was ordered and performed and these results were reviewed with the patient today. Bilateral epididymal head cyst. Tubular ectasia of the rete testes on the right. Testicular microlithiasis is present without intratesticular mass or other worrisome findings. We discussed further treatment options to include surgical intervention verses surveillance monitoring. We discussed risks and benefits of these interventions. He otherwise denies any bothersome urinary issues or concerns. He denies urinary urgency, urinary frequency, incontinence, nocturia, hematuria, dysuria, foul smelling urine, changes to urinary stream, flank pain, fever, and or chills. He is happy with his current voiding parameters. In office urinalysis results reviewed with the patient today. He does report a history of erectile dysfunction however feels Viagra is helpful. He otherwise offers no other issues or concerns at this time. [facility] Medical History Erectile dysfunction Low libido HTN (hypertension) Anxiety Depression Hiatal hernia Shin esophagus GERD (gastroesophageal reflux disease) Pyuria Lumbar radiculopathy Surgical History History of surgery Hx of rotator cuff surgery Hx of colonoscopy Hx of esophagogastroduodenoscopy History of hernia repair Status post excision of lipoma History of shoulder surgery Family History Father Hypertension Substance use disorder Mother Hypertension Osteoarthritis Rheumatoid arthritis Social History Housing: House Alcohol intake: current Alcohol intake frequency: a few times a week Alcohol type: beer Patient Tobacco Use Status: Never used Tobacco e-Cigarette/Vaping Use: Never Used Second Hand Smoke Exposure: No service: No Current occupational status: employed 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 occupational exposures/hazards: No Cognitive needs: No Hearing needs: No Vision needs: Yes Review of Systems Const All systems reviewed & are unremarkable except as noted in HPI and below Physical Exam Const General: cooperative, comfortable, no acute distress, well developed, alert and awake Orientation/consciousness: patient oriented x3 Limitations: no limitations HEENT Head: Yes normal to inspection, Yes normocephalic and Yes atraumatic Ears: hearing grossly normal bilaterally Eyes General: appearance normal, both eyes and all related structures Neck Neck: Yes normal visual inspection and Yes trachea midline Chest Chest palpation & inspection: normal inspection of the chest Resp Effort & Inspection: normal respiratory effort and able to speak in complete sentences Cardio Rate: regular rate GI Inspection: Yes normal to inspection General: Yes no CVA tenderness Back/Spine/Pelvis Back: no CVA tenderness Skin General skin exam: no rashes or lesions noted Neuro General: patient oriented x3 Extrem General: Yes normal to inspection Psych Appearance: grossly normal and well kempt Mental Status: mental status grossly normal Speech and movement: Normal speech and movement present and Clear speech present Affect: normal affect Attitude: cooperative Thought process: Normal thought process present Thought content: Normal thought content present Insight: Fair insight present (Psych) Judgement: Fair judgement present (Psych) Results AMB Urinalysis, Automated UA Leukoctes 0 Olvin/uL Last Edit by Ting Lane on 08/15/24 08:45 UA Nitrite Last Edit by Ting Lane on 08/15/24 08:45 UA Urobilinogen 0.2 mg/dL Last Edit by Ting Aspenstar on 08/15/24 08:45 UA Protein 0 mg/dL Last Edit by Ting Lane on 08/15/24 08:45 UA pH 6.5 Last Edit by Ting Lane on 08/15/24 08:45 UA Blood 0 Roderick/uL Last Edit by Ting Lane on 08/15/24 08:45 UA Specific Kimball 1.015 Last Edit by Ting Lane on 08/15/24 08:45 UA Ketone Last Edit by Ting Lane on 08/15/24 08:45 UA Bilirubin 0 mg/dL Last Edit by Ting Lane on 08/15/24 08:45 UA Glucose 0 mg/dL Last Edit by Ting Lane on 08/15/24 08:45 Results Reviewed Results Reviewed: Laboratory Last Values Urine pH (Auto) 6.5 08/15/24 08:32 Specific Kimball (Auto) 1.015 08/15/24 08:32 Urine Protein (Auto) 0 mg/dL 08/15/24 08:32 Glucose (UA)(Auto) 0 mg/dL 08/15/24 08:32 Urine Blood (Auto) 0 Roderick/uL 08/15/24 08:32 Urine Bilirubin (Auto) 0 mg/dL 08/15/24 08:32 Urine Urobilinogen (Auto) 0.2 mg/dL 08/15/24 08:32 Leukocyte Esterase (Auto) 0 Olvin/uL 08/15/24 08:32 Date of Service: 07/30/24 EXAMINATION: US SCROTUM FINDINGS: RIGHT: Right testicle measures 5.6 x 2.6 x 3.5 cm, volume 26.2 mL. Parenchymal echotexture is homogeneous. There is tubular ectasia of the rete testes. 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 Spectral Doppler analysis of the arterial and venous flow is normal in the right testis. Right epididymal head is normal in size. Multiple epididymal cysts are present, the largest measures 1.9 x 1.5 x 1.8 cm. No right hydrocele or varicocele is seen. LEFT: Left testicle measures 5.8 x 2.5 x 4.1 cm, volume 30.6 mL. Parenchymal echotexture is homogeneous. 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 Spectral Doppler analysis of the arterial and venous flow is normal in the left testis. Left epididymal head is normal in size. Multiple epididymal cysts are present, the largest measures 1.0 x 0.9 x 1.0 cm. No left hydrocele or varicocele is seen. IMPRESSION: 1. Bilateral epididymal cysts.. 2. Tubular ectasia of the rete testes on the right. 3. Testicular microlithiasis is present without intratesticular mass or other worrisome findings. In the absence of any other risk factors for testicular cancer (e.g., personal history of testicular cancer, a father or brother with testicular cancer, history of cryptorchidism or maldescent, testicular atrophy, or other risk factors), no further imaging or biochemical follow-up is necessary; all that is recommended is routine monthly testicular self-examination. However, if the patient has risk factors for testicular cancer, referral to a urologist for evaluation and determination of an optimal follow-up strategy is recommended. Assessment & Plan Assessment & Plan (1) Testicular pain: Code(s): N50.819 - Testicular pain, unspecified Category: Medical (2) Testicular cyst: Code(s): N44.2 - Benign cyst of testis Category: Medical (3) Epididymal cyst: Code(s): N50.3 - Cyst of epididymis Category: Medical Plan In office urinalysis results reviewed with the patient today; as noted above. Recent scrotal ultrasound results reviewed with the patient today; as noted above. Patient currently denies any bothersome urinary issues or concerns. He reports be happy with current voiding parameters. We discussed further treatment options of bilateral epididymal head cysts in risks and benefits of these interventions. Discussed surveillance monitoring however he does not feel this is necessary Follow-up p.r.n. Orders: Orders AMB Urinalysis Automated 08/15/24 Z13.9 - Encounter for screening, unspecified Coding Level of Care Code Est Pt Level 3 (90499) Diagnoses Testicular pain N50.819 Testicular cyst N44.2 Epididymal cyst N50.3
== END 2024-08-15 09:14 | disposition home or self-care (01) ==
LOC: HO.HUSH 08:28
PROVIDERS: PCP Physician Assistant; Visit Provider Nurse Practitioner Family
DX: N50.819 Testicular pain, unspecified (principal); N44.2 Benign cyst of testis; N50.3 Cyst of epididymis
CPT/HCPCS: 99213

== ENCOUNTER → 2024-08-15 08:27 | Outpatient (BNVA) | payer OTHER, SELFPAY | PROVIDERS: PCP Physician Assistant; Visit Provider Nurse Practitioner Family | DX: N50.811 Right testicular pain (principal); N44.2 Benign cyst of testis; N50.3 Cyst of epididymis | CPT/HCPCS: 81003 ==

== ENCOUNTER 2024-09-09 11:33 | Day surgery (SDC) | payer OTHER, SELFPAY ==
[2024-09-03 13:38] VITALS: BMI 27.0
--- NOTE | 2024-09-04 09:14 | P.CONAN_ITS ---
Documented by User: Vera Hardy NP 09/04/24 09:14 HPI - Anesthesia Eval Consult details Narrative: 54yo M for Colonoscopy PMFSH Active Problems Active Problems: All Active Problems Epididymal cyst (Acute) Testicular pain (Acute) Testicular cyst (Acute) ADHD (attention deficit hyperactivity disorder) (Acute) Insomnia (Acute) Elevated fasting blood sugar (Acute) HLD (hyperlipidemia) (Acute) Osteoarthritis (Acute) Polyarthralgia (Acute) Annual physical exam (Acute) MDD (major depressive disorder), recurrent episode, moderate (Acute) ANUJ (generalized anxiety disorder) (Acute) GERD with esophagitis (Acute) HTN (hypertension) (Acute) Past Medical History Medical History (Updated 09/03/24 @ 13:39 by Elli Davis RN) Arthritis ADHD (attention deficit hyperactivity disorder) Erectile dysfunction Low libido HTN (hypertension) Anxiety Depression Hiatal hernia Shin esophagus GERD (gastroesophageal reflux disease) Pyuria Lumbar radiculopathy Family History Family History Father Hypertension Substance use disorder Mother Hypertension Osteoarthritis Rheumatoid arthritis Family history of problems with anesthesia: No Surgical History Surgical History History of surgery Hx of rotator cuff surgery Hx of colonoscopy Hx of esophagogastroduodenoscopy History of hernia repair Status post excision of lipoma History of shoulder surgery History of Problems with Anesthesia: No Social History Social History Housing: House Alcohol intake: current Alcohol intake frequency: a few times a week Alcohol type: beer Patient Tobacco Use Status: Never used Tobacco e-Cigarette/Vaping Use: Never Used Second Hand Smoke Exposure: No Use of substances other than those prescribed or required for medical reasons: No Are you DNR?: No Advance Directives: No Advance Directives Information Provided: Yes Nutrition Risks: No Nutritional Risk Poor oral hygiene: No service: No Current occupational status: employed 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 occupational 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/hazards: No Cognitive needs: No Hearing needs: No Vision needs: Yes Meds Allergies Allergy/AdvReac Type Severity Reaction Status Date / Time No Known Allergies Allergy Verified 08/15/24 08:31 [No Known Allergies*] Exam Height,Weight and Vital Signs: Height 5 ft 10 in Weight 85.275 kg Assessment and Plan Assessment Anesthesia Assessment: Chart Reviewed Final Anesthetic Review Family History of Problems with Anesthesia: No History of Problems with Anesthesia: No Documented by User: Avinash Marcial MD 09/09/24 13:30 [facility] Past Medical History Medical History (Updated 09/03/24 @ 13:39 by Elli Davis RN) Arthritis ADHD (attention deficit hyperactivity disorder) Erectile dysfunction Low libido HTN (hypertension) Anxiety Depression Hiatal hernia Shin esophagus GERD (gastroesophageal reflux disease) Pyuria Lumbar radiculopathy Cognitive capacity: k Family History Family History Father Hypertension Substance use disorder Mother Hypertension Osteoarthritis Rheumatoid arthritis Surgical History Surgical History History of surgery Hx of rotator cuff surgery Hx of colonoscopy Hx of esophagogastroduodenoscopy History of hernia repair Status post excision of lipoma History of shoulder surgery Social History Social History Housing: House Alcohol intake: current Alcohol intake frequency: a few times a week Alcohol type: beer Patient Tobacco Use Status: Never used Tobacco e-Cigarette/Vaping Use: Never Used Second Hand Smoke Exposure: No Use of substances other than those prescribed or required for medical reasons: No Are you DNR?: No Advance Directives: No Advance Directives Information Provided: Yes Nutrition Risks: No Nutritional Risk Poor oral hygiene: No service: No Current occupational status: employed 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 occupational 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/hazards: No Cognitive needs: No Hearing needs: No Vision needs: Yes Meds Allergies Allergy/AdvReac Type Severity Reaction Status Date / Time No Known Allergies Allergy Verified 08/15/24 08:31 [No Known Allergies*] Exam Airway Mallampati Class: II TM Dist: >3cm Neck ROM: Full Loose/Missing/Broken Teeth: No Heart: ok Lungs: ok Assessment and Plan Assessment Anesthesia Assessment: Anesthesia Plan Discussed Final Anesthetic Review NPO: Yes ASA Class: II Final Preanesthetic Review: No Changes in Pt Med Stat, Meds/Allgs Chart Reviewed, Consent Obtained/Reviewed and Anes Risks/Benef Reviewed Patient Risk: Intermediate Procedure Risk: Low Anesthetic Plan Anesthetic Plan: MAC: and Agree w/ Assess. and Plan Disposition: Standard PACU
[2024-09-09 11:52] VITALS: BMI 27.0
[2024-09-09 11:57] VITALS: BP 142/92; PULSE 60; RESP 16; TEMP 36.8; O2SAT 98
[2024-09-09] MEDS: Lactated Ringers 1,000 ML 100 ML IVCONT (12:13)
[2024-09-09 14:03] VITALS: BP 100/69; PULSE 61; RESP 16; TEMP 36.9; O2SAT 96
--- NOTE | 2024-09-09 14:04 | PM.OP ---
Brief Operative Note Date of Service: 09/09/24 Pre-op diagnosis: Ulcerative proctitis, Screening Post-op diagnosis: other (Diverticulosis, R/O dysplasia) Procedure: Colonoscopy to the cecum and TI with biopsies Surgeon: Mauro Bhandari MD Anesthesia: MAC Was an Water Quality Assistant used for this Procedure?: No Estimated blood loss (mL): 2.0 Pathology: other (A. Ascending colon B. Transverse colon C. Descending colon D. Sigmoid colon E. Rectum) Condition: stable Disposition: PACU
[2024-09-09 14:22] VITALS: BP 122/80; PULSE 58; RESP 17; TEMP 36.9; O2SAT 98
--- NOTE | 2024-09-09 14:31 | OP_ITS ---
DATE OF SERVICE: 09/09/2024 SURGEON: Mauro Bhandari MD INDICATIONS: The patient presents for followup of colorectal cancer screening and underlying history of ulcerative proctitis. Full consent has been obtained from him for this, including risks of bleeding and perforation. PREOPERATIVE DIAGNOSIS: POSTOPERATIVE DIAGNOSIS: PROCEDURE PERFORMED: Colonoscopy to cecum and terminal ileum with multiple biopsies. ESTIMATED BLOOD LOSS: COMPLICATIONS: ANESTHESIA: Monitored anesthesia care. ASSISTANTS: SPECIMENS: PREOPERATIVE DIAGNOSES: History of ulcerative colitis and colorectal cancer screening. POSTOPERATIVE DIAGNOSES: History of ulcerative colitis, colorectal cancer screening, rule out dysplasia, sigmoid diverticulosis, and internal hemorrhoids. DESCRIPTION OF PROCEDURE: The patient was placed in the left lateral decubitus position. The digital rectal exam revealed no abnormalities. The Olympus video pediatric colonoscope was then entered into the rectum and advanced easily to the cecum. Once in the cecum, I did identify normal-appearing cecal pouch with appendiceal orifice and a normal-appearing ileocecal valve. The terminal ileum was cannulated and appeared normal. Scope withdrawn back in the colon. The entire cecum and ileocecal valve appeared normal. The scope was slowly withdrawn assessing all mucosal surfaces carefully. Preparation was excellent after some irrigating and suctioning. I did not visualize any sign of active colitis, polyps, nor angiodysplasias. There were occasional diverticula in the sigmoid colon. Random biopsies were obtained in the ascending colon, transverse colon, descending colon, sigmoid colon, and rectum. In the rectum, scope was retroflexed, visualizing internal hemorrhoids, but no other pathology. The rectal mucosa appeared normal. The scope was straightened and withdrawn from the patient. He tolerated the procedure well and was returned to the recovery area in stable condition. IMPRESSION: 1. History of ulcerative proctitis, rule out dysplasia. 2. Diverticulosis. 3. Internal hemorrhoids. PLAN: The results of the biopsy will be checked. I would recommend a repeat colonoscopy in 5 years. He was advised to continue his mesalamine suppository either nightly or as needed depending upon his symptoms. He will be seen in 1 year for a followup office visit and will be due for a followup upper endoscopy at that time in regard to the history of reflux and Shin esophagus. He was advised not to use any aspirin and NSAIDs for least 1 week. MD ANNA Roa/HOMER / [phone]
== END 2024-09-09 14:37 | disposition home or self-care (01) ==
PROVIDERS: PCP Physician Assistant; Visit Provider Internal Medicine
PROC: 0DJD8ZZ Inspection of Lower Intestinal Tract, Via Natural or Artificial Opening Endoscopic (ICD-10-PCS; CPT 45378; principal; 2024-09-09 12:30)
DX: Z12.11 Encounter for screening for malignant neoplasm of colon (principal); K51.20 Ulcerative (chronic) proctitis without complications; K57.30 Diverticulosis of large intestine without perforation or abscess without bleeding; K64.8 Other hemorrhoids; K22.70 Barrett's esophagus without dysplasia; I10 Essential (primary) hypertension; R73.01 Impaired fasting glucose; F90.9 Attention-deficit hyperactivity disorder, unspecified type; F41.1 Generalized anxiety disorder; F32.A Depression, unspecified; Z79.899 Other long term (current) drug therapy; Z98.890 Other specified postprocedural states
CPT/HCPCS: 45380; 88305; J2003; J2704

== ENCOUNTER 2024-10-07 08:33 | Outpatient (AMB) | payer OTHER, SELFPAY ==
[2024-10-07 08:36] VITALS: BP 140/80; PULSE 61; O2SAT 98; BMI 28.4
--- NOTE | 2024-10-07 08:36 | MHC.PC.OV ---
Vital Signs 10/07/24 08:36 Height 5 ft 10 in Weight 198 lb BMI 28.4 BP 140/80 H Blood Pressure Location Lt brachial Position Sitting Pulse 61 Pulse Source Pulse Oximeter Pulse Oximetry (%) 98 Oxygen Delivery Method Room Air Intake Visit Reasons: f/u HTN/ HLD Intake Note: Patient is here to follow up on HTN, HLD. Pt decline flu shot today. Replenishment Associate Required: No Sweet Potato Disintegrator: Not Required per policy Accompanied by: Self / Same As Patient Allergies No Known Allergies [No Known Allergies*] Allergy (Verified 10/07/24 08:40) Medication List - Last Reconciled 10/07/24 by Jerry Ramirez PA-C amlodipine 10 mg PO DAILY 90 days dextroamphetamine-amphetamine 10 mg (Adderall) 20 mg (2 x 10 mg) PO DAILY 28 days metoprolol tartrate 25 mg PO BID omeprazole 20 mg PO BID sildenafil 100 mg PO DAILY PRN 7 days simvastatin 20 mg PO BEDTIME zolpidem 10 mg PO BEDTIME 28 days Tobacco use date assessed: 10/07/24 Dental Screening Dental Screen Date: 04/01/24 HPI f/u HTN/ HLD HPI Details Patient is a 54 year-old male here today for a follow up.? Patient has a past medical history significant hypertension, insomnia, MDD, ADD,, GERD (Barretts esophagus),? hyperlipidemia, Osteoarthritis:? suffers from osteoarthritis, primarily affecting major joints, hands, and feet, causing significant pain and functional limitations, exacerbated post-exercise. The patient consumes ibuprofen regularly for pain management but avoids constant use due to concerns about its hypertensive effects. The patient has explored topical treatments like Voltaren with limited relief, preferring physical and aquatic therapies when possible. He also describes a family history of rheumatoid arthritis, which concerns him, leading to proactive plans to seek rheumatological insight if needed.. Hypertension:? Blood pressure noted to be elevated today in office. Attributes this to his recent weight gain and taking more NSAIDs as a recently..? .? Continues on metoprolol and amlodipine without any side effect.? .. Hyperlipidemia:? Previously, the patient's cholesterol levels were noted to be elevated, with a total cholesterol of 226 mg/dL and LDL cholesterol of 143 mg/dL in July, categorizing them as borderline high. There was an incident where the patient did not take statin medication for a week, which could have contributed to elevated levels during past labs. .. GERD/ Shin's esophagus:? Is followed by gastroenterology and had EGD in 2021 showing esophagitis/Shin's esophagus.? Needed repeat it upper endoscopy in 5 years.? Unfortunately continues to take very fair amount of NSAIDs and does understand he needs to cut down . .. Depression/ ADHD: He does report he is off of all antidepressant medication. Was followed by psychiatrist whom was managing his mental health medication. . Has been taking Adderall 20 mg on a p.r.n. basis which has drastically improved his attention and focus. [facility] Medical History Arthritis ADHD (attention deficit hyperactivity disorder) Erectile dysfunction Low libido HTN (hypertension) Anxiety Depression Hiatal hernia Shin esophagus GERD (gastroesophageal reflux disease) Pyuria Lumbar radiculopathy Surgical History History of surgery Hx of rotator cuff surgery Hx of colonoscopy Hx of esophagogastroduodenoscopy History of hernia repair Status post excision of lipoma History of shoulder surgery Family History Father Hypertension Substance use disorder Mother Hypertension Osteoarthritis Rheumatoid arthritis Social History Housing: House Alcohol intake: current Alcohol intake frequency: a few times a week Alcohol type: beer Patient Tobacco Use Status: Never used Tobacco e-Cigarette/Vaping Use: Never Used Second Hand Smoke Exposure: No service: No Current occupational status: employed 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 Mauro Gray, Judy Martinez, Elgin Mckenzie and colleagues, with an educational sid from [employer]. Review of Systems Const Denies headache(s) Eyes Denies loss of vision ENT Denies vertigo, Denies dizziness, Denies headache(s) and Denies sore throat Card Denies chest pain, Denies leg edema and Denies lightheadedness Resp Denies cough, Denies hemoptysis and Denies wheezing GI Denies abdominal pain, Denies melena, Denies constipation, Denies diarrhea and Denies vomiting Denies dysuria, Denies urinary frequency and Denies urinary urgency Musc Denies arthralgias, Denies joint swelling, Denies numbness and Denies tingling Neuro Denies Abnormal speech present, Denies behavioral changes, Denies vertigo, Denies dizziness, Denies headache(s), Denies loss of vision, Denies memory loss, Denies numbness and Denies tingling Psych Denies anxiety, Denies behavioral changes, Denies depression, Denies memory loss and Denies panic attacks Ian/Lymph Denies easy bleeding and Denies easy bruising Aller/Immun Denies wheezing Physical exam (Primary Care) Vital Signs: Last Vital Signs Pulse 61 10/07/24 08:36 BP 140/80 H 10/07/24 08:36 Pulse Ox 98 10/07/24 08:36 Oxygen Delivery Method Room Air 10/07/24 08:36 BMI result Body Mass Index 28.4 Tobacco/Smoking Status: Tobacco use Status Tobacco use date assessed 10/07/24 10/07/24 08:38 Patient Tobacco Use Status Never used Tobacco 10/07/24 08:38 Tobacco use type 03/29/23 09:12 e-Cigarette/Vaping Use Never Used 10/07/24 08:38 Thrive Assessment: Date of Thrive Assessment Date Thrive assessed 02/07/23 10/07/24 08:38 Const General: healthy appearing, no acute distress, alert and awake Nutritional Appearance: well nourished Orientation/consciousness: oriented to person, oriented to place and oriented to time [facility] Ears: TM's normal bilaterally General nose exam: Normal nasal mucous membranes and turbinates present Eyes Conjunctivae: conjunctivae normal Sclerae: sclerae normal Pupils: Equal, round and reactive pupils present Neck Neck: Yes no lymphadenopathy and Yes no JVD Thyroid: Thyroid normal Carotids: no bruits Resp Effort & Inspection: normal respiratory effort and not tachypneic Auscultation: no crackles, no rales, no rhonchi and no wheezes Cardio Rate: regular rate Rhythm: regular rhythm Heart sounds: no murmurs and normal S1 and S2 GI Palpation (GI): Soft to palpation, nontender, no hepatomegaly and no splenomegaly Auscultation: normal bowel sounds Skin General skin exam: no rashes or lesions noted and dry skin Neuro General: oriented to person, oriented to place and oriented to time Cranial nerves: Yes Equal, round and reactive pupils present Speech: No Abnormal speech present Gait exam (Neuro): Normal gait present Motor exam (neuro): no tremor noted Extrem Right upper extremity: full ROM Left upper extremity: full ROM Right lower extremity: full ROM; no edema Left lower extremity: full ROM; no edema Psych Mental Status: mental status grossly normal Speech and movement: Normal speech and movement present Affect: normal affect Attitude: cooperative Thought process: Normal thought process present Coding Level of Care Code Est Pt Level 4 (96501) Diagnoses Mixed hyperlipidemia E78.2 Hyperlipidemia type: mixed hyperlipidemia Primary osteoarthritis of left shoulder M19.012 Laterality: left Osteoarthritis location: shoulder Osteoarthritis type: primary Primary hypertension I10 Hypertension type: primary hypertension Assessment & Plan Assessment & Plan (1) HLD (hyperlipidemia): Code(s): E78.5 - Hyperlipidemia, unspecified Category: Medical Qualifiers: Hyperlipidemia type: mixed hyperlipidemia Qualified Code(s): E78.2 - Mixed hyperlipidemia Plan: Most recent lipid panel showing borderline high cholesterol and LDL. He reports being off of simvastatin for week during that time. He has restarted daily use of simvastatin and recently started being more physically active and adapting to better eating habits after the holidays. Goal LDL is to be below 130. (2) Osteoarthritis: Code(s): M19.90 - Unspecified osteoarthritis, unspecified site Category: Medical Qualifiers: Laterality: left Osteoarthritis location: shoulder Osteoarthritis type: primary Qualified Code(s): M19.012 - Primary osteoarthritis, left shoulder Plan: For joint pain management, we reviewed the use of non-steroidal anti-inflammatory drugs like ibuprofen and the potential benefit of exploring additional options, including acetaminophen, and aquatic exercises. Exploration of dietary changes and considering less inflammatory food choices were discussed as potential methods to control arthritis symptoms (3) HTN (hypertension): Code(s): I10 - Essential (primary) hypertension Category: Medical Qualifiers: Hypertension type: primary hypertension Qualified Code(s): I10 - Essential (primary) hypertension Plan: Patient's blood pressure slightly elevated today in office. Has been taking a lot of NSAIDs due to his arthritic pain which is likely the reason for his elevated blood pressure. He continues with the use metoprolol and amlodipine on a daily basis. Goal blood pressures to remain below 140/90. Orders: Orders Comprehensive [place]. Panel Fast 10/07/24 E78.2 - Mixed hyperlipidemia Prostate Specific Antigen Scr 10/07/24 E78.2 - Mixed hyperlipidemia, Z12.5 - Encounter for screening for malignant neoplasm of prostate Lipid Panel 10/07/24 E78.2 - Mixed hyperlipidemia Complete Blood Count no Diff 10/07/24 E78.2 - Mixed hyperlipidemia Vitamin D 25-OH Total 10/07/24 F33.1 - Major depressive disorder, recurrent, moderate Medications: New acetaminophen ER (Tylenol Arthritis Pain) 650 mg PO Q12H 60 tabs 3RF 30 days M19.012 - Primary osteoarthritis, left shoulder, M19.90 - Unspecified osteoarthritis, unspecified site
== END 2024-10-07 09:00 | disposition home or self-care (01) ==
PROVIDERS: PCP Physician Assistant; Visit Provider Physician Assistant
DX: E78.2 Mixed hyperlipidemia (principal); M19.012 Primary osteoarthritis, left shoulder; I10 Essential (primary) hypertension

== ENCOUNTER → 2024-10-07 08:33 | Outpatient (BNVA) | payer OTHER, SELFPAY | PROVIDERS: PCP Physician Assistant; Visit Provider Physician Assistant ==

== ENCOUNTER 2025-04-01 07:52 | Outpatient (AMB) | payer OTHER, SELFPAY ==
[2025-04-01 07:56] VITALS: BP 122/78; PULSE 62; O2SAT 98; BMI 28.3
--- NOTE | 2025-04-01 07:56 | A.OFFPC_ITS ---
Vital Signs 04/01/25 07:56 Height 5 ft 10 in Weight 197 lb BMI 28.3 BP 122/78 Blood Pressure Location Lt brachial Position Sitting Pulse 62 Pulse Source Pulse Oximeter Pulse Oximetry (%) 98 Oxygen Delivery Method Room Air Intake Visit Reasons: ANNUAL Allergies No Known Allergies (No Known Allergies*) Allergy (Verified 04/01/25 08:17) Medication List - Last Reconciled 04/01/25 by Jerry Ramirez PA-C acetaminophen ER (Tylenol Arthritis Pain) 650 mg PO Q12H 30 days amlodipine 10 mg PO DAILY 90 days dextroamphetamine-amphetamine 10 mg (Adderall) 20 mg (2 x 10 mg) PO DAILY 28 days metoprolol tartrate 25 mg PO BID omeprazole 20 mg PO BID sildenafil 100 mg PO DAILY PRN 7 days simvastatin 20 mg PO BEDTIME zolpidem 10 mg PO BEDTIME 28 days Tobacco use date assessed: 04/01/25 Dental Screening Dental Screen Date: 04/01/25 Did you have a dental visit in the last 12 months?: Yes Did you have a dental problem in the last 6 months where you did not have access to dental care?: No Was dental information given to patient?: Patient has dentist HPI ANNUAL HPI Details Patient is a 55 year-old male here today for an annual physical.? Patient has a past medical history significant hypertension, insomnia, MDD, ADD,, GERD (Barretts esophagus),? hyperlipidemia, Osteoarthritis:? suffers from osteoarthritis, primarily affecting major joints, hands, and feet, causing significant pain and functional limitations, exacerbated post-exercise. The patient consumes ibuprofen regularly for pain management but avoids constant use due to concerns about its hypertensive effects. The patient has explored topical treatments like Voltaren with limited relief, preferring physical and aquatic therapies when possible. He also describes a family history of rheumatoid arthritis, which concerns him, leading to proactive plans to seek rheumatological insight if needed.. Hypertension:? Blood pressure acceptable today in office. Attributes this to his recent weight gain and taking more NSAIDs as a recently..? .? Continues on metoprolol and amlodipine without any side effect.? .. Hyperlipidemia:? Previously, the patient's cholesterol levels were noted to be elevated, with a total cholesterol of 226 mg/dL and LDL cholesterol of 143 mg/dL in July, categorizing them as borderline high. There was an incident where the patient did not take statin medication for a week, which could have contributed to elevated levels during past labs. .. GERD/ Shin's esophagus:? Is followed by gastroenterology and had EGD in 2021 showing esophagitis/Shin's esophagus.? Needed repeat it upper endoscopy in 5 years.? Unfortunately continues to take very fair amount of NSAIDs and does understand he needs to cut down . .. Depression/ ADHD: He does report he is off of all antidepressant medication. Was followed by psychiatrist whom was managing his mental health medication. . Has been taking Adderall 20 mg on a p .r.n. basis which has drastically improved his attention and focus. Colon cancer screening-[facility] in in 2023- Dr. Bhandari??need to repeat in 5 years Vaccines: Up-to-date with COVID vaccine , considering shingrex vaccine, NEed PCV-20. [facility] Medical History Arthritis ADHD (attention deficit hyperactivity disorder) Erectile dysfunction Low libido HTN (hypertension) Anxiety Depression Hiatal hernia Shin esophagus GERD (gastroesophageal reflux disease) Pyuria Lumbar radiculopathy Surgical History History of surgery Hx of rotator cuff surgery Hx of colonoscopy Hx of esophagogastroduodenoscopy History of hernia repair Status post excision of lipoma History of shoulder surgery Family History (Updated 04/01/25 @ 08:16 by Jerry Ramirez PA-C) Father Hypertension Substance use disorder Mother Hypertension Osteoarthritis Rheumatoid arthritis Dementia Social History Housing: House Alcohol intake: current Alcohol intake frequency: a few times a week Alcohol type: beer Patient Tobacco Use Status: Never used Tobacco Tobacco use type: Cigarette e-Cigarette/Vaping Use: Never Used Second Hand Smoke Exposure: No service: No Current occupational status: employed 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 1. Little interest or pleasure in doing things: not at all 2. Feeling down, depressed, or hopeless: not at all 3. Trouble falling or staying asleep, or sleeping too much: not at all 4. Feeling tired or having little energy: not at all 5. Poor appetite or overeating: not at all 6. Feeling bad about yourself - or that you are a failure or have let yourself or your family down: not at all 7. Trouble concentrating on things, such as reading the newspaper or watching television: not at all 8. Moving or speaking so slowly that other people could have noticed. Or the opposite - being so fidgety or restless that you have been moving around a lot more than usual: not at all 9. Thoughts that you would be better off or of hurting yourself in some way: not at all Total score: 0 Depression Screening Interpretation: Negative Depression Screening Done: Yes 50264 - PHQ-9 Billing: Yes Source: Developed by Drs. Mauro Gray, Judy Martinez, Elgin Mckenzie and colleagues, with an educational sid from [employer]. Thrive Questionnaire Date Thrive assessed: 04/01/25 I am a: Patient What is your living situation today?: I have a steady place to live Within the past 12 months, did the food you bought not last and you didn't have the money to get more?: Never true Within the past 12 months, did you worry whether your food would run out before you got money to buy more?: Never true Do you have trouble paying for medicines?: No Do you have trouble getting transportation to medical appointments?: No Do you have trouble paying your heating and electricity bill?: No Do you have trouble taking care of your child, family member or friend?: No Do you have trouble with day-to-day activities such as bathing, preparing meals, shopping, managing finances, etc.?: No Are you currently unemployed and looking for a job?: No Are you interested in more education?: No Please select the resources that you would like help with: None Currently or been in a relationship where the following occur: No concerns reported THRIVE Score: 0 AUDIT C Alcohol Use Questionnaire (AUDIT-C) 1. How often do you have a drink containing alcohol?: 2-4 times a month 2. How many drinks containing alcohol do you have on a typical day when you are drinking?: 1 or 2 3. How often do you have six or more drinks on one occasion?: Never Total Score: 2 ANUJ-7 AMB Questionnaire ANUJ-7 Date ANUJ - 7 assessed: 04/01/25 Feeling nervous, anxious, or on edge: 0 = Not at all Not being able to stop or control worryin = Not at all Worrying too much about different things: 0 = Not at all Trouble relaxin = Not at all Being so restless that it is hard to sit still: 0 = Not at all Becoming easily annoyed or irritable: 0 = Not at all Feeling afraid as if something awful might happen: 0 = Not at all Total ANUJ-7 score (0-4 normal; 5-9 mild; 10-14 moderate; 15-21 severe): 0 Source: Developed by Drs. Mauro Gray, Judy Martinez, Elgin Mckenzie and colleagues, with an educational sid from [employer]. ANUJ-7 Assessment Billing ANUJ-7 Assessment Tool: ANUJ-7 Assessment 12560 Review of Systems Const Denies body aches, Denies chills, Denies excessive sweating, Denies fatigue, Denies fever(s) and Denies headache(s) Eyes Denies blurry vision ENT Denies dysphagia, Denies vertigo, Denies dizziness, Denies headache(s), Denies hearing loss and Denies tinnitus Card Denies chest pain, Denies chest pain with activity, Denies syncope, Denies irregular heart rhythm and Denies dyspnea Resp Denies chest congestion, Denies cough, Denies hemoptysis, Denies dyspnea and Denies wheezing GI Denies abdominal pain, Denies melena, Denies hematochezia, Denies coffee ground emesis, Denies dysphagia, Denies diarrhea, Denies nausea and Denies vomiting Denies difficulty urinating, Denies dysuria, Denies urinary frequency, Denies urinary hesitancy and Denies urinary urgency Musc Denies arthralgias, Denies limited range of motion, Denies muscle cramps and Denies muscle weakness Skin/Breast Denies rash and Denies skin ulcer Neuro Denies Abnormal speech present, Denies confusion, Denies vertigo, Denies dizziness, Denies syncope, Denies headache(s), Denies memory loss and Denies seizure-like activity Psych Denies anxiety, Denies confusion, Denies depression, Denies memory loss, Denies panic attacks and Denies paranoia Endo Denies excessive sweating, Denies fatigue, Denies flushing, Denies polydipsia a nd Denies polyuria Aller/Immun Denies wheezing Physical exam (Primary Care) Vital Signs: Last Vital Signs Pulse 62 04/01/25 07:56 BP 122/78 04/01/25 07:56 Pulse Ox 98 04/01/25 07:56 Oxygen Delivery Method Room Air 04/01/25 07:56 BMI result Body Mass Index 28.3 Tobacco/Smoking Status: Tobacco use Status Tobacco use date assessed 04/01/25 04/01/25 08:00 Patient Tobacco Use Status Never used Tobacco 04/01/25 08:00 Tobacco use type Cigarette 04/01/25 08:00 e-Cigarette/Vaping Use Never Used 04/01/25 08:00 PHQ-9: PHQ-9 Score PHQ-9: Total score 0 04/01/25 08:13 Depression Screening Interpretation: Negative Thrive Assessment: Date of Thrive Assessment Date Thrive assessed 04/01/25 04/01/25 08:00 Currently or been in a relationship where the following occur: No concerns reported Const General: cooperative, comfortable, no acute distress, alert and awake; No confusion Orientation/consciousness: oriented to person, oriented to place, patient oriented x3 and No confusion HENMT Head: Yes normocephalic Ears: external ears normal and TM's normal bilaterally Face and sinus: No sinus tenderness Mouth: Normal oral and palatal mucosa present and tongue normal Teeth and gingiva: dentition normal and gingiva normal Throat: Yes posterior oropharynx normal, Yes tonsils normal and Yes uvula midline Eyes Conjunctivae: conjunctivae normal Sclerae: sclerae normal Pupils: Equal, round and reactive pupils present EOM: EOMs intact bilaterally Direct Ophthalmoscopy: No no photophobia Neck Neck: Yes no lymphadenopathy, No tender and Yes no JVD Thyroid: Thyroid normal Carotids: no bruits Chest Chest palpation & inspection: no tenderness Resp Effort & Inspection: normal respiratory effort, no audible wheezes, not labored and no stridor Auscultation: no crackles, no rales, no rhonchi and no wheezes Cardio Jugular venous distension: no JVD Rate: regular rate, not bradycardic and not tachycardic Rhythm: regular rhythm Bruits: no carotid bruits Peripheral pulses: Peripheral pulses 2+ throughout GI Inspection: Yes normal to inspection, No abdominal wall ecchymosis and No visible herniation Palpation (GI): Soft to palpation, nontender, no guarding, not rigid and No hepatosplenomegaly present Auscultation: normoactive bowel sounds General: Yes no CVA tenderness Back/Spine/Pelvis Back: no CVA tenderness and No back tenderness Cervical Spine: cervical ROM normal Thoracic/Lumbar Spine: thoracic and lumbar spine normal to inspection, straight leg raise negative bilaterally, No thoraco-lumbar ROM limited and No lumbar spinal tenderness Skin Lesions: no lesions Rashes: no rashes Wounds: no wounds Neuro General: oriented to person, oriented to place, patient oriented x3, CN's II-XI intact bilaterally and No confusion Cranial nerves: Yes Equal, round and reactive pupils present and Yes Normal accommodation reflex present Cognition (Neuro): normal cognition Speech: No Abnormal speech present Gait exam (Neuro): Normal gait present Motor exam (neuro): 5/5 motor strength present throughout Extrem Right upper extremity: full ROM; no cyanosis Left upper extremity: full ROM; no cyanosis Right lower extremity: no edema Left lower extremity: no edema Psych Appearance: grossly normal Mental Status: mental status grossly normal Affect: normal affect Attitude: cooperative Thought process: Normal thought process present Coding Level of Care Code Est Pt Prev Care 40-64y(83090) Diagnoses Annual physical exam Z00.00 Mixed hyperlipidemia E78.2 Hyperlipidemia type: mixed hyperlipidemia Primary osteoarthritis of left shoulder M19.012 Laterality: left Osteoarthritis location: shoulder Osteoarthritis type: primary Primary hypertension I10 Hypertension type: primary hypertension MDD (major depressive disorder), recurrent episode, moderate F33.1 Additional Codes ANUJ-7 Assessment Billing - ANUJ-7 Assessment Tool: ANUJ-7 Assessment [id number] ([id number]) PHQ-9 - 59792 - PHQ-9 Billing: Yes ([id number]) Assessment & Plan Assessment & Plan (1) Annual physical exam: Code(s): Z00.00 - Encounter for general adult medical examination without abnormal f indings Category: Medical Plan: As per HPI (2) HLD (hyperlipidemia): Code(s): E78.5 - Hyperlipidemia, unspecified Category: Medical Qualifiers: Hyperlipidemia type: mixed hyperlipidemia Qualified Code(s): E78.2 - Mixed hyperlipidemia Plan: Most recent lipid panel showing borderline high cholesterol and LDL. Continues on simvastatin at this time. He has restarted daily use of simvastatin and recently started being more physically active and adapting to better eating habits after the holidays. Goal LDL is to be below 130. (3) Osteoarthritis: Code(s): M19.90 - Unspecified osteoarthritis, unspecified site Category: Medical Qualifiers: Laterality: left Osteoarthritis location: shoulder Osteoarthritis type: primary Qualified Code(s): M19.012 - Primary osteoarthritis, left shoulder Plan: For joint pain management, we reviewed the use of non-steroidal anti- inflammatory drugs like ibuprofen and the potential benefit of exploring additional options, including acetaminophen, and aquatic exercises. Exploration of dietary changes and considering less inflammatory food choices were discussed as potential methods to control arthritis symptoms (4) HTN (hypertension): Code(s): I10 - Essential (primary) hypertension Category: Medical Qualifiers: Hypertension type: primary hypertension Qualified Code(s): I10 - Essential (primary) hypertension Plan: Patient's blood pressure acceptable today in office.. He continues with the use metoprolol and amlodipine on a daily basis. Goal blood pressures to remain below 140/90. (5) MDD (major depressive disorder), recurrent episode, moderate: Code(s): F33.1 - Major depressive disorder, recurrent, moderate Category: Medical Plan: Patient's PHQ-9 score 0, he continues to talk to a mental health therapist and has a psychiatrist who manages his mental health medication. He feels fairly stable from a mental health point of view. Orders: Orders Prostate Specific Antigen Scr Today E78.2 - Mixed hyperlipidemia, Z12.5 - Encounter for screening for malignant neoplasm of prostate Comprehensive [place]. Panel Fast Today I10 - Essential (primary) hypertension Complete Blood Count no Diff Today I10 - Essential (primary) hypertension Lipid Panel Today E78.2 - Mixed hyperlipidemia Patient Instructions: Goal: Blood pressure to remain below 140/90, LDL to be below 130 Barriers: Adherence to physical activity and healthy eating habits.
--- OUTSIDE RECORDS SUMMARY | 2025-04-01 07:57 | XMS_ITS | Patient Health Record ---
Author Organization [facility] Address [address] [place] [address] Care Team Providers Care Gum Remover Name Role Phone Jerry Ramirez Primary Care Provider UnavailMauro Blanca Unavailable [phone] Allergies No Known Allergies Results Component Value Reference Range Notes Pathology (Not yet reviewed by provider) Interpretation: Performing Lab:[facility], [address] [place] [phone] Notes/Report: Reason For Referral No Information Medications Medication SIG (Take, Route, Frequency, Duration) Notes Start Date End Date Status Mesalamine 1000 MG UNWRAP AND _insert 1 SUPPOSITORY RECTALLY AT BEDTIME FOR 30 DAYS for 90 Activ e Amphetamine-Dextroamphetam ine Active BC Fast Pain Relief Arthritis 1000-65 MG 1 packet as needed Orally every 6 hrs Active Multi Vitamin/Minerals - as directed Ora lly once a day Active amLODIPine Besylate 10 MG 1 tablet Orall y Once a day for 30 day(s) Active Metoprolol Succinate 25 MG 1 capsule Ora lly twice a day Active Omeprazole 20 mg TAKE ONE CAPSULE BY MOUTH TWICE DAILY for 30 05/20/2014 Active Vitamin C Active Immunizations Vaccine Route Administration Date Status Comme nts Influenza Unknown 05/30/2019 Refused Problems Problem Type SNOMED Code ICD Code Onset Dates Problem Status W/U Status Risk Notes Problem Colon cancer screening (838118670) Colon cancer screening (Z12.11) Active confirmed Problem 619107527 Encounter for screening for malignant neoplasm of colon (Z12.11) Active confirmed Problem Barretts esophagus (494499243) Barretts esophagus (K22.70) Active confirmed Problem 38537395 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) Active confirmed Problem Diverticular disease of colon (066952492) Diverticulosis of large intestine without perforation or abscess without bleeding (K57.30) Active confirmed Problem 967335135 Gastroesophageal reflux disease, esophagitis presence not specified (K21.9) Active confirmed Problem Hemorrhage of rectum and anus (432535096) Rectal bleed (K62.5) Active confirmed Problem 65164241 Rectal pain (K62.89) Active confirmed Problem Chronic ulcerative proctitis (61624714) Ulcerative proctitis, without complications (K51.20) Active confirmed Problem 38142535 Ulcerative proctitis without complication (K51.20) Active confirmed Problem 326510393 Shin''s esophagus without dysplasia (K22.70) Active confirmed Problem Gastroesophageal reflux disease (477991759) Gastroesophageal reflux disease, unspecified whether esophagitis present (K21.9) Active confirmed Vital Signs Blood pressure diastolic 00 mm Hg 06/11/2024 Height 70 in 06/11/2024 Blood pressure systolic 00 mm Hg 06/11/2024 Weight 188 lbs 06/11/2024 BMI 26.97 kg/m2 06/11/2024 Encounters Encounter Location Date Provider Diagnosis [facility] [place] [address] [place], [place] [id number] 09/09/2024 Mauro Bhandari Colon cancer screeni ng Z12.11 ; Ulcerative proctitis, without complications K51.20 ; Diverticulosis of large intestine without perforation or abscess without bleeding K57.30 and Other hemorrhoids K64.8 [facility] [address] [place] [address] 06/11/2024 Mauro Bhandari Rectal bleed K62.5 ; Colon cancer screening Z12.11 ; Ulcerative proctitis without complication K51.20 ; Shin''s esophagus without dysplasia K22.70 and Gastroesophageal reflux disease, esophagitis presence not specified K21.9 Assessments Encounter Date Diagnosis (ICD Code) Assessment Notes Treatment Notes Treatment Clinical Notes Section Notes 09/09/2024 Colon cancer screening (ICD-10 - Z12.11) 09/09/2024 Ulcerative proctitis, without complications (ICD-10 - K51.20) 06/11/2024 Colon cancer screening (ICD-10 - Z12.11) Overall,Joseph appears well. His reflux seems to be quite stable on his daily omeprazole and I advised him to continue that. We did review the findings on the most recent endoscopy in 2021 and the need for a followup upper endoscopy at the end of 2024 due to the previous history of Shin's mucosa noted on other endoscopies. He is not having any new or worrisome symptoms to suggest the need for an earlier endoscopy. I did recommend a followup colonoscopy primarily for screening purposes given his colonoscopy in 2019 was somewhat limited by the prep. There was no proctitis noted at that time and his current symptoms seem most consistent with some hemorrhoidal bleeding. We did discuss that if only hemorrhoids are again noted and his bleeding continues we can always make a referral for him to see Dr. Sanchez to consider hemorrhoid surgery if need be. We did review the rationale for the colonoscopy in regard to colon cancer prevention. Full consent was obtained for this, including risks of bleeding and perforation. The procedure will be done with monitored anesthesia care. Joseph was comfortable with this plan. Thank you again for allowing me to participate in Joseph's care. I shall continue to keep you advised of his progress. 06/11/2024 Rectal bleed (ICD-10 - K62.5) Overall,Joseph appears well. His reflux seems to be quite stable on his daily omeprazole and I advised him to continue that. We did review the findings on the most recent endoscopy in 2021 and the need for a followup upper endoscopy at the end of 2024 due to the previous history of Shin's mucosa noted on other endoscopies. He is not having any new or worrisome symptoms to suggest the need for an earlier endoscopy. I did recommend a followup colonoscopy primarily for screening purposes given his colonoscopy in 2019 was somewhat limited by the prep. There was no proctitis noted at that time and his current symptoms seem most consistent with some hemorrhoidal bleeding. We did discuss that if only hemorrhoids are again noted and his bleeding continues we can always make a referral for him to see Dr. Sanchez to consider hemorrhoid surgery if need be. We did review the rationale for the colonoscopy in regard to colon cancer prevention. Full consent was obtained for this, including risks of bleeding and perforation. The procedure will be done with monitored anesthesia care. Joseph was comfortable with this plan. Thank you again for allowing me to participate in Joseph's care. I shall continue to keep you advised of his progress. 09/09/2024 Diverticulosis of large intestine without perforation or abscess without bleeding (ICD-10 - K57.30) 06/11/2024 Ulcerative proctitis without complication (ICD-10 - K51.20) Overall,Joseph appears well. His reflux seems to be quite stable on his daily omeprazole and I advised him to continue that. We did review the findings on the most recent endoscopy in 2021 and the need for a followup upper endoscopy at the end of 2024 due to the previous history of Shin's mucosa noted on other endoscopies. He is not having any new or worrisome symptoms to suggest the need for an earlier endoscopy. I did recommend a followup colonoscopy primarily for screening purposes given his colonoscopy in 2019 was somewhat limited by the prep. There was no proctitis noted at that time and his current symptoms seem most consistent with some hemorrhoidal bleeding. We did discuss that if only hemorrhoids are again noted and his bleeding continues we can always make a referral for him to see Dr. Sanchez to consider hemorrhoid surgery if need be. We did review the rationale for the colonoscopy in regard to colon cancer prevention. Full consent was obtained for this, including risks of bleeding and perforation. The procedure will be done with monitored anesthesia care. Joseph was comfortable with this plan. Thank you again for allowing me to participate in Joseph's care. I shall continue to keep you advised of his progress. 09/09/2024 Other hemorrhoids (ICD-10 - K64.8) 06/11/2024 Shin''s esophagus without dysplasia (ICD-10 - K22.70) Overall,Joseph appears well. His reflux seems to be quite stable on his daily omeprazole and I advised him to continue that. We did review the findings on the most recent endoscopy in 2021 and the need for a followup upper endoscopy at the end of 2024 due to the previous history of Shin's mucosa noted on other endoscopies. He is not having any new or worrisome symptoms to suggest the need for an earlier endoscopy. I did recommend a followup colonoscopy primarily for screening purposes given his colonoscopy in 2019 was somewhat limited by the prep. There was no proctitis noted at that time and his current symptoms seem most consistent with some hemorrhoidal bleeding. We did discuss that if only hemorrhoids are again noted and his bleeding continues we can always make a referral for him to see Dr. Sanchez to consider hemorrhoid surgery if need be. We did review the rationale for the colonoscopy in regard to colon cancer prevention. Full consent was obtained for this, including risks of bleeding and perforation. The procedure will be done with monitored anesthesia care. Joseph was comfortable with this plan. Thank you again for allowing me to participate in Joseph's care. I shall continue to keep you advised of his progress. 06/11/2024 Gastroesophageal reflux disease, esophagitis presence not specified (ICD-10 - K21.9) Overall,Joseph appears well. His reflux seems to be quite stable on his daily omeprazole and I advised him to continue that. We did review the findings on the most recent endoscopy in 2021 and the need for a followup upper endoscopy at the end of 2024 due to the previous history of Shin's mucosa noted on other endoscopies. He is not having any new or worrisome symptoms to suggest the need for an earlier endoscopy. I did recommend a followup colonoscopy primarily for screening purposes given his colonoscopy in 2018 was somewhat limited by the prep. There was no proctitis noted at that time and his current symptoms seem most consistent with some hemorrhoidal bleeding. We did discuss that if only hemorrhoids are again noted and his bleeding continues we can always make a referral for him to see Dr. Sanchez to consider hemorrhoid surgery if need be. We did review the rationale for the colonoscopy in regard to colon cancer prevention. Full consent was obtained for this, including risks of bleeding and perforation. The procedure will be done with monitored anesthesia care. Joseph was comfortable with this plan. Thank you again for allowing me to participate in Joseph's care. I shall continue to keep you advised of his progress. Plan Of Treatment Pending Test Test Name Order Date Pathology 09/09/2024 Future Test Test Name Order Date UPPER GI ENDOSCOPY 04/28/2015 UPPER GI ENDOSCOPY 05/30/2019 COLONOSCOPY 05/30/2019 UPPER GI ENDOSCOPY 07/07/2022 COLONOSCOPY 06/11/2024 Insurance Providers Payer Name Payer Address Payer Phone Subscriber Number Group Number Insured Name Patient Relationship to Insured Coverage Start Date Coverage End Date [employer] [address] [place] [phone] [id number] MINAL JOSEPH Self - patient is the insured Medical (General) History Medical History History ICD Code GERD and Shin's Esophagus -EGD's in 2007 and 2010-endoscopy in 2010 revealed a small hiatal hernia as well as the small area of Shin's esophagus-- biopsies were negative for dysplasia Denies ID,DM,CVA,Lung disease,renal dise ase Depression/anxiety Distal ulcerative proctitis- -- a colonoscopy in 2005 revealed a very distal proctitis and small internal hemorrhoids--he was treated with mesalamine suppositories, but that has been stable for many years He had normal duodenal biops ies in 2007 and a negative abdominal ultrasound in 2007 EGD in 06/2015-small hiatal h ernia, tiny area of Shin's with biopsies neg. for dysplasia, erosive gastritis with bx neg for Hpylori HTN Screening colonoscopy in Aug was negative, although the prep was somewhat limited and therefore he was advised to have a repeat colonoscopy in 2023 Upper endoscopy in August 2019 revealed his known small hiatal hernia and mild changes of reflux, although biopsies from the gastroesophageal junction were negative for Shin's mucosa on that occasion. Gastric biopsies were negative for H. pylori ADHD Upper endoscopy in August of 2022 was negative for any Shin's mucosa or significant esophagitis Surgical History Surgery Date(Month/Year) Shoulder surgery-left Umbilical hernia repair 09/2017 Right rotator cuff 2020
== END 2025-04-01 08:32 | disposition home or self-care (01) ==
LOC: HO.HMCH 07:53
PROVIDERS: PCP Physician Assistant; Visit Provider Physician Assistant
DX: Z00.00 Encounter for general adult medical examination without abnormal findings (principal); E78.2 Mixed hyperlipidemia; F33.1 Major depressive disorder, recurrent, moderate; M19.012 Primary osteoarthritis, left shoulder; I10 Essential (primary) hypertension

== ENCOUNTER → 2025-04-01 07:52 | Outpatient (BNVA) | payer OTHER, SELFPAY | PROVIDERS: PCP Physician Assistant; Visit Provider Physician Assistant | DX: Z00.00 Encounter for general adult medical examination without abnormal findings (principal); I10 Essential (primary) hypertension; G47.00 Insomnia, unspecified; K21.9 Gastro-esophageal reflux disease without esophagitis; K22.70 Barrett's esophagus without dysplasia; M19.042 Primary osteoarthritis, left hand; M19.041 Primary osteoarthritis, right hand; M19.072 Primary osteoarthritis, left ankle and foot; M19.071 Primary osteoarthritis, right ankle and foot; F90.9 Attention-deficit hyperactivity disorder, unspecified type; E78.2 Mixed hyperlipidemia; M19.012 Primary osteoarthritis, left shoulder; F33.1 Major depressive disorder, recurrent, moderate | CPT/HCPCS: 96127 ==

== ENCOUNTER 2025-10-01 07:56 | Outpatient (AMB) | payer OTHER, SELFPAY ==
--- OUTSIDE RECORDS SUMMARY | 2024-09-09 07:30 | XMS_ITS ---
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) Ulcerative proctitis, without complications (K51.20) Active confirmed Problem Diverticular disease of colon (835996503) Diverticulosis of large intestine without perforation or abscess without bleeding (K57.30) Active confirmed Encounters Encounter Location Date Provider Diagnosis [facility] [address] [place] [phone] 09/09/2024 Mauro Bhandari Colon cancer scree shyann Z12.11 ; Ulcerative proctitis, without complications K51.20 ; Diverticulosis of large intestine without perforation or abscess without bleeding K57.30 and Other hemorrhoids K64.8 Assessments Encounter Date Diagnosis (ICD Code) Assessment Notes Treatment Notes Treatment Clinical Notes Section Notes 09/09/2024 Colon cancer screening (ICD-10 - Z12.11) 09/09/2024 Ulcerative proctitis, without complications (ICD-10 - K51.20) 09/09/2024 Diverticulosis of large intestine without perforation or abscess without bleeding (ICD-10 - K57.30) 09/09/2024 Other hemorrhoids (ICD-10 - K64.8) Plan Of Treatment Next Appt Details Provider Name:Mauro Bhandari , 01/01/2026 10:20:00 AM, [address], [address], [place], [address], Progress Notes * TABATHA FONTAINE MDOB: [birth year] (55 yo M)Acc No.[id number]:09/09/2024 COLON WITH MAC Patient: TABATHA BUENO Provider: Nabila Bhandari MD :1970 A ge:54 Y S ex:Male Date:09/09/2024 Address: [address] [id number] Pcp:Jerry Ramirez Subjective: * Chief Complaints: * R ectal bleeding,screening,ulcerative proctitis Assessment: * Assessment: 1. C olon cancer screening - Z12.11 (Primary) 2 . U lcerative proctitis, without complications - K51.20 3 . D iverticulosis of large intestine without perforation or abscess without bleeding - K57.30 4 . O ther hemorrhoids - K64.8 Plan: * Procedure Codes: 4 5380 COLONOSCOPY AND BIOPSY Billing Information: * Procedure Codes: 52220 COLONOSCOPY AND BIOPSY. * The named appointment provid er may or may not be the originator of this progress note, and it is not deemed complete until electronically signed by the appointment provider. Sign off status: Pending * Provider: Nabila Bhandari MD Date: 11/10/2023 Generated for Chris carcamo/Dwight/Zoëitting on: 12/02/2024 08:02 AM EST
--- NOTE | 2025-10-01 08:00 | MHC.PC.OV ---
Vital Signs 10/01/25 08:01 Height 5 ft 10 in Weight 200 lb BMI 28.7 BP 122/78 Blood Pressure Location Lt brachial Position Sitting Respiration 18 Pulse 60 Pulse Source Pulse Oximeter Temp 97.8 F Temp Source Temporal Artery Scan Pulse Oximetry (%) 96 Oxygen Delivery Method Room Air Intake Visit Reasons: f/u HLD Clinical Project Leader Required: No Accompanied by: Self / Same As Patient Allergies No Known Allergies (No Known Allergies*) Allergy (Verified 10/01/25 08:18) Medication List - Last Reconciled 10/01/25 by Jerry Ramirez PA-C acetaminophen ER (Tylenol Arthritis Pain) 650 mg PO Q12H 30 days amlodipine 10 mg PO DAILY 90 days dextroamphetamine-amphetamine 10 mg (Adderall) 20 mg (2 x 10 mg) PO DAILY 28 days dextromethorphan-bupropion 45-105 mg ER (Auvelity) 1 tab PO BID metoprolol tartrate 25 mg PO BID omeprazole 20 mg PO ONCE sildenafil 100 mg PO DAILY PRN 7 days simvastatin 20 mg PO BEDTIME zolpidem 10 mg PO BEDTIME 28 days Tobacco use date assessed: 04/01/25 Dental Screening Dental Screen Date: 04/01/25 HPI f/u HLD HPI Details Patient is a 55 year-old male here today for a follow-up visit? Patient has a past medical history significant hypertension, insomnia, MDD, ADD,, GERD (Barretts esophagus),? hyperlipidemia, Try reports he has been under lot of stress as of lately due to personal issues, has gained some weight since last office visit as he has not been able to take much personal care of himself. He plans on doing more physical activity in the next few months to help reduce his weight and overall health. -Concern--> He also complains of excessively sweaty feet, leading to recurrent athlete's foot, and has successfully used Drysol in the past. Additionally, he has ongoing abdominal pain that worsens with red meat consumption and has a follow-up upper endoscopy scheduled. .. Hypertension:? Blood pressure acceptable today in office. Attributes this to his recent weight gain and taking more NSAIDs as a recently..? .? Continues on metoprolol and amlodipine without any side effect.? .. Hyperlipidemia:? Previously, the patient's cholesterol levels were noted to be elevated, with a total cholesterol of 226 mg/dL and LDL cholesterol of 143 mg/dL in July, categorizing them as borderline high. There was an incident where the patient did not take statin medication for a week, which could have contributed to elevated levels during past labs. -- > We discuss perhaps increasing the mostly of his statin to help reduce his total cholesterol and LDL less his cardiovascular risk. .. GERD/ Shin's esophagus:? Is followed by gastroenterology and had EGD in 2021 showing esophagitis/Shin's esophagus.? Needed repeat it upper endoscopy in 5 years.? Unfortunately continues to take very fair amount of NSAIDs and does understand he needs to cut down . .. Depression/ ADHD: He does report he is off of all antidepressant medication. Was followed by psychiatrist whom was managing his mental health medication. . Has been taking Adderall 20 mg on a p.r.n. basis which has drastically improved his attention and focus. [facility] Medical History Arthritis ADHD (attention deficit hyperactivity disorder) Erectile dysfunction Low libido HTN (hypertension) Anxiety Depression Hiatal hernia Shin esophagus GERD (gastroesophageal reflux disease) Pyuria Lumbar radiculopathy Surgical History History of surgery Hx of rotator cuff surgery Hx of colonoscopy Hx of esophagogastroduodenoscopy History of hernia repair Status post excision of lipoma History of shoulder surgery Family History Father Hypertension Substance use disorder Mother Hypertension Osteoarthritis Rheumatoid arthritis Dementia Social History Housing: House Alcohol intake: current Alcohol intake frequency: a few times a week Alcohol type: beer Patient Tobacco Use Status: Never used Tobacco Tobacco use type: Cigarette e-Cigarette/Vaping Use: Never Used Second Hand Smoke Exposure: No service: No Current occupational status: employed 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 occupational exposures/hazards: No Cognitive needs: No Hearing needs: No Vision needs: Yes Questionnaire Thrive Questionnaire Date Thrive assessed: 04/01/25 I am a: Patient What is your living situation today?: I have a steady place to live Within the past 12 months, did the food you bought not last and you didn't have the money to get more?: Never true Within the past 12 months, did you worry whether your food would run out before you got money to buy more?: Never true Do you have trouble paying for medicines?: No Do you have trouble getting transportation to medical appointments?: No Do you have trouble paying your heating and electricity bill?: No Do you have trouble taking care of your child, family member or friend?: No Do you have trouble with day-to-day activities such as bathing, preparing meals, shopping, managing finances, etc.?: No Are you currently unemployed and looking for a job?: No Are you interested in more education?: No Currently or been in a relationship where the following occur: No concerns reported THRIVE Score: 0 ANUJ-7 AMB Questionnaire ANUJ-7 Date ANUJ - 7 assessed: 04/01/25 Source: Developed by Drs. Mauro Gray, Judy Martinez, Elgin Mckenzie and colleagues, with an educational sid from [employer]. Review of Systems Const Denies body aches, Denies chills, Denies excessive sweating, Denies fatigue, Denies fever(s) and Denies headache(s) Eyes Denies blurry vision ENT Denies dysphagia, Denies vertigo, Denies dizziness, Denies headache(s), Denies hearing loss and Denies tinnitus Card Denies chest pain, Denies chest pain with activity, Denies syncope, Denies irregular heart rhythm and Denies dyspnea Resp Denies chest congestion, Denies cough, Denies hemoptysis, Denies dyspnea and Denies wheezing GI Denies abdominal pain, Denies melena, Denies hematochezia, Denies coffee ground emesis, Denies dysphagia, Denies diarrhea, Denies nausea and Denies vomiting Denies difficulty urinating, Denies dysuria, Denies urinary frequency, Denies urinary hesitancy and Denies urinary urgency Musc Denies arthralgias, Denies limited range of motion, Denies muscle cramps and Denies muscle weakness Skin/Breast Denies rash and Denies skin ulcer Neuro Denies Abnormal speech present, Denies confusion, Denies vertigo, Denies dizziness, Denies syncope, Denies headache(s), Denies memory loss and Denies seizure-like activity Psych Denies anxiety, Denies confusion, Denies depression, Denies memory loss, Denies panic attacks and Denies paranoia Endo Denies excessive sweating, Denies fatigue, Denies flushing, Denies polydipsia and Denies polyuria Ian/Lymph Denies easy bleeding and Denies easy bruising Aller/Immun Denies wheezing Physical exam (Primary Care) Vital Signs: Last Vital Signs Temp 97.8 F 10/01/25 08:01 Pulse 60 10/01/25 08:01 Resp 18 10/01/25 08:01 BP 122/78 10/01/25 08:01 Pulse Ox 96 10/01/25 08:01 Oxygen Delivery Method Room Air 10/01/25 08:01 BMI result Body Mass Index 28.7 Tobacco/Smoking Status: Tobacco use Status Tobacco use date assessed 04/01/25 10/01/25 08:03 Patient Tobacco Use Status Never used Tobacco 10/01/25 08:03 Tobacco use type Cigarette 10/01/25 08:03 e-Cigarette/Vaping Use Never Used 10/01/25 08:03 Thrive Assessment: Date of Thrive Assessment Date Thrive assessed 04/01/25 10/01/25 08:03 Currently or been in a relationship where the following occur: No concerns reported Const General: cooperative, comfortable, no acute distress, alert and awake; No confusion Nutritional Appearance: well nourished Orientation/consciousness: oriented to person, oriented to place, patient oriented x3 and No confusion HENMT Head: Yes normocephalic Ears: external ears normal and TM's normal bilaterally General nose exam: Normal nasal mucous membranes and turbinates present Face and sinus: No sinus tenderness Mouth: Normal oral and palatal mucosa present and tongue normal Teeth and gingiva: dentition normal and gingiva normal Throat: Yes posterior oropharynx normal, Yes tonsils normal and Yes uvula midline Eyes Conjunctivae: conjunctivae normal Sclerae: sclerae normal Pupils: Equal, round and reactive pupils present EOM: EOMs intact bilaterally Direct Ophthalmoscopy: No no photophobia Neck Neck: Yes no lymphadenopathy, No tender and Yes no JVD Thyroid: Thyroid normal Carotids: no bruits Chest Chest palpation & inspection: no tenderness Resp Effort & Inspection: normal respiratory effort, no audible wheezes, not labored and no stridor Auscultation: no crackles, no rales, no rhonchi and no wheezes Cardio Jugular venous distension: no JVD Rate: regular rate, not bradycardic and not tachycardic Rhythm: regular rhythm Heart sounds: no murmurs and normal S1 and S2 Bruits: no carotid bruits Peripheral pulses: Peripheral pulses 2+ throughout GI Inspection: Yes normal to inspection, No abdominal wall ecchymosis and No visible herniation Palpation (GI): Soft to palpation, nontender, no guarding, not rigid and No hepatosplenomegaly present Auscultation: normoactive bowel sounds General: Yes no CVA tenderness Back/Spine/Pelvis Back: no CVA tenderness and No back tenderness Cervical Spine: cervical ROM normal Thoracic/Lumbar Spine: thoracic and lumbar spine normal to inspection, straight leg raise negative bilaterally, No thoraco-lumbar ROM limited and No lumbar spinal tenderness Skin General skin exam: no rashes or lesions noted and dry skin Lesions: no lesions Rashes: no rashes Wounds: no wounds Neuro General: oriented to person, oriented to place, patient oriented x3, CN's II-XI intact bilaterally and No confusion Cranial nerves: Yes Equal, round and reactive pupils present and Yes Normal accommodation reflex present Cognition (Neuro): normal cognition Speech: No Abnormal speech present Gait exam (Neuro): Normal gait present Motor exam (neuro): 5/5 motor strength present throughout Extrem Right upper extremity: full ROM; no cyanosis Left upper extremity: full ROM; no cyanosis Right lower extremity: no edema Left lower extremity: no edema Psych Appearance: grossly normal Mental Status: mental status grossly normal Speech and movement: Normal speech and movement present Affect: normal affect Attitude: cooperative Thought process: Normal thought process present Coding Level of Care Code Est Pt Level 4 (02762) Diagnoses Mixed hyperlipidemia E78.2 Hyperlipidemia type: mixed hyperlipidemia Primary osteoarthritis of left shoulder M19.012 Osteoarthritis location: shoulder Osteoarthritis type: primary Laterality: left Primary hypertension I10 Hypertension type: primary hypertension Hyperhidrosis R61 Assessment & Plan Assessment & Plan (1) HLD (hyperlipidemia): Code(s): E78.5 - Hyperlipidemia, unspecified Category: Medical Qualifiers: Hyperlipidemia type: mixed hyperlipidemia Qualified Code(s): E78.2 - Mixed hyperlipidemia Plan: Most recent lipid panel showing borderline high cholesterol and LDL. Continues on simvastatin at this time. He has restarted daily use of simvastatin and recently started being more physically active and adapting to better eating habits after the holidays. Goal LDL is to be below 130. (2) Osteoarthritis: Code(s): M19.90 - Unspecified osteoarthritis, unspecified site Category: Medical Qualifiers: Osteoarthritis location: shoulder Osteoarthritis type: primary Laterality: left Qualified Code(s): M19.012 - Primary osteoarthritis, left shoulder Plan: For joint pain management, we reviewed the use of non-steroidal anti-inflammatory drugs like ibuprofen and the potential benefit of exploring additional options, including acetaminophen, and aquatic exercises. Exploration of dietary changes and considering less inflammatory food choices were discussed as potential methods to control arthritis symptoms (3) HTN (hypertension): Code(s): I10 - Essential (primary) hypertension Category: Medical Qualifiers: Hypertension type: primary hypertension Qualified Code(s): I10 - Essential (primary) hypertension Plan: Patient's blood pressure acceptable today in office.. He continues with the use metoprolol and amlodipine on a daily basis. Goal blood pressures to remain below 140/90. (4) Hyperhidrosis: Code(s): R61 - Generalized hyperhidrosis Category: Medical Plan: To manage his pedal hyperhidrosis and recurrent tinea pedis, a prescription for Drysol 20% solution was sent to his pharmacy. Orders: Orders Microalbumin, Random (w Creat) Today I10 - Essential (primary) hypertension Lipid Panel Today E78.2 - Mixed hyperlipidemia Hemoglobin A1c Today R73.01 - Impaired fasting glucose Complete Blood Count no Diff Today E78.2 - Mixed hyperlipidemia Comprehensive [place]. Panel Fast Today E78.2 - Mixed hyperlipidemia Prostate Specific Antigen Scr Today E78.2 - Mixed hyperlipidemia, Z12.5 - Encounter for screening for malignant neoplasm of prostate Medications: New aluminum chloride 20% (Drysol Dab-O-Matic) 1 appl topical BEDTIME PRN 60 mL 0RF excessive sweating 4 weeks R61 - Generalized hyperhidrosis Changed From omeprazole 20 mg PO BID 180 caps 2RF To omeprazole 20 mg PO ONCE Refilled simvastatin 20 mg PO BEDTIME 90 tabs 1RF metoprolol tartrate 25 mg PO BID 180 tabs 1RF amlodipine 10 mg PO DAILY 90 tabs 2RF 90 days I10 - Essential (primary) hypertension
[2025-10-01 08:01] VITALS: BP 122/78; PULSE 60; RESP 18; TEMP 36.6; O2SAT 96; BMI 28.7
--- OUTSIDE RECORDS SUMMARY | 2025-10-01 08:02 | XMS_ITS | Patient Health Record ---
Author Organization [facility] Address [address] [place] [address] Care Team Providers Care Blindstitch Machine Operator Name Role Phone Jerry Ramirez Primary Care Provider UnavailMauro Blanca Unavailable [phone] Allergies No Known Allergies Reason For Referral No Information Medications Medication SIG (Take, Route, Frequency, Duration) Notes Start Date End Date Status Mesalamine 1000 MG Suppository UNWRAP AND _insert 1 SUPPOSITORY RECTALLY AT BEDTIME FOR 30 DAYS; Duration: 90 Active Amphetamine-Dextroamphetami ne Active BC Fast Pain Relief Arthritis 1000-65 MG Packet 1 packet as needed Orally every 6 hrs Active Multi Vitamin/Minerals - Tablet as directed Orally once a day Active amLODIPine Besylate 10 MG Tablet 1 tablet Orally Once a day; Duration: 30 day(s) Active Metoprolol Succinate 25 MG Capsule ER 24 Hour Sprinkle 1 capsule Orally twice a day Active Omeprazole 20 mg Miscellaneous Unspecified TAKE ONE CAPSULE BY MOUTH TWICE DAILY; Duration: 30 05/20/2014 Active Vitamin C Active Immunizations Vaccine Route Administration Date Status Comme nts Influenza Unknown 05/30/2019 Refused Social History Social History Additional Details Category Social Info Options Details Miscellaneous: Marital status: w ith three daughters; now engaged 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 Children: 3 daughters Section Notes: He does not smoke or use any significant amounts of alcohol He does not smoke or use any significant amounts of alcohol-some beer, but not daily He does not smoke or use any significant amounts of alcohol-some beer, but not daily He does not smoke or use any significant amounts of alcohol-some beer, but not daily Problems Problem Type SNOMED Code ICD Code Onset Dates Problem Status W/U Status Risk Notes Problem Colon cancer screening (608295178) Colon cancer screening (Z12.11) Active confirmed Problem Screening for malignant neoplasm of colon (518027054) Encounter for screening for malignant neoplasm of colon (Z12.11) Active confirmed Problem Barretts esophagus (196823476) Barretts esophagus (K22.70) Active confirmed Problem Chronic ulcerative proctitis (34907483) 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) Active confirmed Problem Diverticular disease of colon (984442101) Diverticulosis of large intestine without perforation or abscess without bleeding (K57.30) Active confirmed Problem Gastroesophageal reflux disease (998239751) Gastroesophageal reflux disease, esophagitis presence not specified (K21.9) Active confirmed Problem Hemorrhage of rectum and anus (110847740) Rectal bleed (K62.5) Active confirmed Problem Rectal pain (22106521) Rectal pain (K62.89) Active confirmed Problem Chronic ulcerative proctitis (73527303) Ulcerative proctitis, without complications (K51.20) Active confirmed Problem Chronic ulcerative proctitis (91276867) Ulcerative proctitis without complication (K51.20) Active confirmed Problem Shni's esophagus (028374174) Shin''s esophagus without dysplasia (K22.70) Active confirmed Problem Gastroesophageal reflux disease (981580686) Gastroesophageal reflux disease, unspecified whether esophagitis present (K21.9) Active confirmed Plan Of Treatment Pending Test Test Name Order Date Pathology 09/09/2024 Future Test Test Name Order Date UPPER GI ENDOSCOPY 04/28/2015 UPPER GI ENDOSCOPY 05/30/2019 COLONOSCOPY 05/30/2019 UPPER GI ENDOSCOPY 07/07/2022 COLONOSCOPY 06/11/2024 Next Appt Details Provider Name:Mauro Perez Thony , 01/01/2026 10:20:00 AM, [address] [place] [address], [address], [place], [address], Insurance Providers Payer Name Payer Address Payer Phone Subscriber Number Group Number Insured Name Patient Relationship to Insured Coverage Start Date Coverage End Date [employer] [address] [place] [phone] [id number] TABATHA FONTAINE Self - patient is the insured Medical (General) History Medical History History ICD Code GERD and Shin's Esophagus -EGD's in 2007 and 2010-endoscopy in 2010 revealed a small hiatal hernia as well as the small area of Shin's esophagus-- biopsies were negative for dysplasia Denies CT,DM,CVA,Lung disease,renal dise ase Depression/anxiety Distal ulcerative proctitis- [...]
--- OUTSIDE RECORDS SUMMARY | 2025-10-01 08:02 | XMS_ITS | Encounter Summary ---
Author Organization [facility] Address [address] [place] [address] Phone Care Team Providers Care Beauty School Instructor Name Role Phone Byron Estrella DO Primary Care Provider [phone] Encounter Details Date Type Department Care Team ([facility] Contact Info) Description 07/31/2020 Procedure Pass BWF Periop 1st floor [address] [place] [address] Social History Tobacco Use Types Packs/Day Years Used Date Smoking Tobacco: Never Smokeless Tobacco: Never Alcohol Use Standard Drinks/Week Comments Yes 0 (1 standard drink = 0.6 oz pur e alcohol) few times a wek Sex and Gender Information Value Date Recorded Sex Assigned at Not on file Legal Sex Male 2:58 PM EDT Gender Identity Not on file Sexual Orientation Not on file documented as of this encounter Plan of Treatment Not on file documented as of this encounter Visit Diagnoses Not on filedocumented in this encounter Care Teams Beauty School Instructor Relationship Specialty Start Date End Date Byron Estrella DO PCP - General Family Medicine 05/27/15 documented as of this encounter Additional Source Comments The information contained in this document represents components of the legal health record. It is not the complete legal health record.[facility]
--- OUTSIDE RECORDS SUMMARY | 2025-10-01 08:02 | XMS_ITS | Clinical Summary ---
Author Organization [facility] Address [address] [address] Phone Care Team Providers Care Director Of Catering Name Role Phone Byron Estrella DO Primary Care Provider [phone] Allergies No known active allergies Medications DULoxetine (CYMBALTA) 60 MG capsule Take 90 mg by mouth daily. Active amLODIPine (NORVASC) 10 MG tablet 07/18/2020 Active metoprolol tartrate (LOPRESSOR) 25 MG tablet Take 25 mg by mouth 2 (two) times a day with meals. 07/05/2020 Active sildenafiL (VIAGRA) 50 mg tablet Take 50 mg by mouth daily as needed. 07/02/2020 Active simvastatin (ZOCOR) 20 MG tablet Take 20 mg by mouth every evening. 07/05/2020 Active zolpidem (AMBIEN) 10 mg tablet TAKE 1/2 1 TABLET BY MOUTH AT BEDTIME 05/08/2020 Active acetaminophen (TYLENOL) 500 mg capsule Take 2 capsules (1,000 mg total) by mouth every 6 (six) hours as needed for fever. 60 capsule 07/31/2020 Active PAIN RELIEF EXTRA STRENGTH 500 mg tablet TAKE 2 CAPSULES BY MOUTH EVERY 6 HOURS NEEDED FEVER 07/31/2020 Active DULoxetine (CYMBALTA) 30 MG capsule Take 90 mg by mouth daily. 07/25/2020 Active Active Problems No known active problems Social History Tobacco Use Types Packs/Day Years Used Date Smoking Tobacco: Never Smokeless Tobacco: Never Alcohol Use Standard Drinks/Week Comments Yes 0 (1 standard drink = 0.6 oz pur e alcohol) few times a wek Education Answer Date Recorded Are you interested in more education? Not on lissa e 02/03/2023 Are you concerned about learning? Not on file 02/03/2023 No 02/03/2023 No 02/03/2023 Digital Access Answer Date Recorded No 03/05/2023 No 03/05/2023 No 03/05/2023 Reliable internet access at home? Not on file 03/05/2023 Device with a working camera? Not on file Sex and Gender Information Value Date Recorded Sex Assigned at Not on file Legal Sex Male 2:58 PM EDT Gender Identity Not on file Sexual Orientation Not on file Last Filed Vital Signs Vital Sign Reading Time Taken Comments Blood Pressure 108/68 07/31/2020 12:00 PM EDT Pulse 78 07/31/2020 12:00 PM EDT Temperature 36.6 C (97.9 F) 02/02/2021 11:08 AM EDT Respiratory Rate 20 07/31/2020 12:0 0 PM EDT Oxygen Saturation 96% 07/31/2020 12: 00 PM EDT Inhaled Oxygen Concentration - - Weight 83.9 kg (184 lb 15.5 oz) 021 11:08 AM EDT Height 177.8 cm (5' 10 ) 02/02/2021 11: 08 AM EDT Body Mass Index 26.54 02/02/2021 11:08 AM EDT Plan of Treatment Health Maintenance Due Date Last Done Comments Adult Td,Tdap Booster 1969 LIPID PANEL 1969 DEPRESSION SCREENING 1981 HEPATITIS C SCREENING 1987 HIV ONE-TIME SCREENING (18-6 5 YEARS) 1987 COLOGUARD 2014 COLONOSCOPY 2014 COLORECTAL CANCER SCREENING 2014 FIT TEST 2014 FOBT 2014 SIGMOIDOSCOPY 2014 VIRTUAL COLONOSCOPY 2014 PNEUMOCOCCAL VACCINES (50+ years) (1 of 1 - PCV) 2019 ZOSTER VACCINES (1 of 2) 2019 INFLUENZA VACCINE (#1) 2025 COVID-19 VACCINE (3 - 2024-2 6 season) 2025 11/25/2020, 10/29/2020 RSV VACCINE (1 - 1-dose 75+ series) 02/07/2044 SMOKING STATUS SCREENING (On ce After 26 Yrs) Completed 02/02/2021 HEPATITIS A VACCINES Aged Out No long er eligible based on patient's age to complete this topic HIB VACCINES Aged Out No longer eligi ble based on patient's age to complete this topic MENINGOCOCCAL VACCINES (ACWY) Aged Out No longer eligible based on patient's age to complete this topic MENINGOCOCCAL VACCINES (B) Aged Out N o longer eligible based on patient's age to complete this topic Medical Devices Implanted Type Area Exhibit Artist Device Identifier Shelf Expiration Date Model / Serial / Lot [employer] Suture 4.75x19.1mm Arthroscopy Biocomposite Speedbridge Swivelock Lf - [id number] Implanted:Qty: 1 on 07/31/2020 by John Mike MD at [facility] [employer] 05/08/2024 [id number] -4 / / [id number] [employer] Suture Fibertak Labraltape White /Black #2 Tigertail White/Green/Black -Order In Muliples Of 5 - [id number] Implanted:Qty: 1 on 07/31/2020 by John Mike MD at [facility] Right: Shoulder [employer] 07/08/2024 [id number] / / [id number] Insurance [facility] [place] [id number] [facility] [employer] [facility] [employer] FAM[employer] [facility] [employer] FAMILY [facility] [employer] FAM[employer] [facility] [employer] FAM[employer] [facility] [employer] FAMILY [facility] [employer] FAMILY [facility] [employer] Care Teams Director Of Catering Relationship Specialty Start Date End Date Byron Estrella DO PCP - General Family Medicine 05/27/15 Additional Source Comments The information contained in this document represents components of the legal health record. It is not the complete legal health record.[facility]
--- OUTSIDE RECORDS SUMMARY | 2025-10-01 08:02 | XMS_ITS | Encounter Summary ---
Author Organization [facility] Address [address] [place] [id number] Phone Care Team Providers Care Body Shop Technician Name Role Phone Byron Estrella DO Primary Care Provider [phone] Encounter Details Date Type Department Care Team (Late st Contact Info) Description 05/27/2020 Procedure Pass [facility], [place] [address] [place] [address] Social History Tobacco Use Types Packs/Day Years Used Date Smoking Tobacco: Never Smokeless Tobacco: Never Alcohol Use Standard Drinks/Week Comments Not Asked 0 (1 standard drink = 0.6 oz pur e alcohol) Sex and Gender Information Value Date Recorded Sex Assigned at Not on file Legal Sex Male 2:58 PM EDT Gender Identity Not on file Sexual Orientation Not on file documented as of this encounter Plan of Treatment Not on file documented as of this encounter Visit Diagnoses Not on filedocumented in this encounter Care Teams Body Shop Technician Relationship Specialty Start Date End Date Byron Estrella DO PCP - General Family Medicine 05/27/15 documented as of this encounter Additional Source Comments The information contained in this document represents components of the legal health record. It is not the complete legal health record.[facility]
== END 2025-10-01 08:40 | disposition home or self-care (01) ==
LOC: HO.HMCH 07:57
PROVIDERS: PCP Physician Assistant; Visit Provider Physician Assistant
DX: E78.2 Mixed hyperlipidemia (principal); M19.012 Primary osteoarthritis, left shoulder; I10 Essential (primary) hypertension; R61 Generalized hyperhidrosis